=== PATIENT | female | born 1955 | race Caucasian/White ===

== ENCOUNTER 2017-03-04 11:40 | Inpatient (IN) | payer BC ==
[~2017-03-04] VITALS: Ht 152.4 cm; Wt 48.8 kg
[~2017-03-04 11:40] MED LIST: Z.0.NO CURRENT MEDS
[2017-03-04 11:42] VITALS: BP 133/62; PULSE 118; RESP 20; TEMP 99.1; O2SAT 97
[2017-03-04] MEDS ORDERED: SODIUM CHLOR 0.9% 1000 ML INJ 1,000 ML IV SCH (13:15)
--- NOTE | 2017-03-04 13:25 | PD ---
HPI Chief Complaint: Skin Problem Time Seen by Provider: 13:06 Travel History International Travel<30 days: No Contact w/Intl Traveler<30days: No Traveled to known affect area: No History of Present Illness HPI This is a 61-year-old female who presents to the emergency department with pain in her right breast. 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 She's not had any problems since then. This morning she woke up with pain in her right breast, constant, moderate severity, with a lot of tenderness in her breast and a temperature of 101. Dr. Bryan was her surgeon at the time of her reconstruction. PFSH Past Medical History Hx Anticoagulant Therapy: No Cardiovascular Problems: No Chemotherapy: No Cerebrovascular Accident: No Diabetes: No Diminished Hearing: No Respiratory: No Tetanus Vaccination: > 5 Years ?: Unknown Menopausal: Yes Past Surgical History Hysterectomy: Yes Social History Alcohol Use: Yes (1-2 WEEK) Tobacco Use: Yes (1 PK DAY) Substance Use: No Allergies-Medications (Allergen,Severity, Reaction): Coded Allergies: No Known Allergies (Verified , 06/16/08) Reported Meds & Prescriptions Reported Meds & Active Scripts Active Reported No Current Meds (Miscellaneous Medication) Misc Review of Systems Except as stated in HPI: all other systems reviewed are Neg Physical Exam Narrative GENERAL:Well appearing, no acute distress SKIN: Erythema and warmth of the right breast, diffusely tender HEAD: Atraumatic. Normocephalic. EYES: Pupils equal and round. No injection or drainage. ENT: Moist mucous membranes NECK: Trachea midline. CARDIOVASCULAR: Regular rate and rhythm. No murmur appreciated. RESPIRATORY: Clear to auscultation. Breath sounds equal bilaterally. GASTROINTESTINAL: Abdomen soft, non-tender, nondistended. MUSCULOSKELETAL: No obvious deformities. NEUROLOGICAL: Awake and alert. No obvious cranial nerve deficits. Moving all extremities. PSYCHIATRIC: Appropriate mood and affect; insight and judgment normal. Data Data Last Documented VS Vital Signs Date Time Temp Pulse Resp B/P (MAP) Pulse Ox O2 Delivery O2 Flow Rate FiO2 03/04/17 14:42 99.1 80 18 118/74 (89) 99 03/04/17 11:42 Room Air Orders Orders Complete Blood Count With Diff (03/04/17 13:12) Comprehensive Metabolic Panel (03/04/17 13:12) Lactic Acid Sepsis Protocol (03/04/17 13:12) Blood Culture (03/04/17 13:12) Blood Glucose (03/04/17 13:12) Ecg Monitoring (03/04/17 13:12) Iv Access Insert/Monitor (03/04/17 13:12) Oximetry (03/04/17 13:12) Oxygen Administration (03/04/17 13:12) Sodium Chlor 0.9% 1000 Ml Inj (Ns 1000 M (03/04/17 13:15) Us Breast Unilateral (03/04/17 ) Clindamycin Inj (Cleocin Inj) (03/04/17 14:00) Admit Order (Ed Use Only) (03/04/17 14:42) Labs Laboratory Tests Test 03/04/17 13:30 White Blood Count 16.5 TH/MM3 Red Blood Count 4.41 MIL/MM3 Hemoglobin 13.4 GM/DL Hematocrit 40.4 % Mean Corpuscular Volume 91.6 FL Mean Corpuscular Hemoglobin 30.5 PG Mean Corpuscular Hemoglobin Concent 33.3 % Red Cell Distribution Width 13.7 % Platelet Count 284 TH/MM3 Mean Platelet Volume 6.3 FL Neutrophils (%) (Auto) 74.1 % Lymphocytes (%) (Auto) 18.0 % Monocytes (%) (Auto) 7.2 % Eosinophils (%) (Auto) 0.5 % Basophils (%) (Auto) 0.2 % Neutrophils # (Auto) 12.3 TH/MM3 Lymphocytes # (Auto) 3.0 TH/MM3 Monocytes # (Auto) 1.2 TH/MM3 Eosinophils # (Auto) 0.1 TH/MM3 Basophils # (Auto) 0.0 TH/MM3 CBC Comment DIFF FINAL Differential Comment Blood Urea Nitrogen 16 MG/DL Creatinine 0.83 MG/DL Random Glucose 95 MG/DL Total Protein 7.0 GM/DL Albumin 3.4 GM/DL Calcium Level 8.7 MG/DL Alkaline Phosphatase 58 U/L Aspartate Amino Transf (AST/SGOT) 10 U/L Alanine Aminotransferase (ALT/SGPT) 15 U/L Total Bilirubin 0.5 MG/DL Sodium Level 140 MEQ/L Potassium Level 3.3 MEQ/L Chloride Level 105 MEQ/L Carbon Dioxide Level 25.0 MEQ/L Anion Gap 10 MEQ/L Estimat Glomerular Filtration Rate 70 ML/MIN Lactic Acid Level 0.5 mmol/L MDM Medical Decision Making Medical Screen Exam Complete: Yes Emergency Medical Condition: Yes Interpretation(s) Temperature is 99.1, tachycardic, normotensive She leukocytosis 74% neutrophils Hypokalemia Lactic acid is 0.5 Last 24 hours Impressions Breast Ultrasound 03/04/17 0000 Signed Impressions: Service Date/Time: Saturday, March 04, 2017 13:33 - CONCLUSION: No ultrasound evidence of skin thickening or subcutaneous fluid collection. Anitra Daniels MD Differential Diagnosis Breast abscess, breast cellulitis, infected implant, sepsis Narrative Course This is a 61-year-old female who presents to the emergency department with swelling and pain of her right breast. She had an implant placed in 2014 but hasn't had trouble since. She did temperature of 101 at home. Here in the emergency department she is placed in a monitor and an IV was established. Labs demonstrate a leukocytosis of 16 and she was tachycardic on arrival consistent with sepsis. She was given a dose of IV clindamycin and cultures were obtained. I spoke to who agreed to see the patient tomorrow or on Monday if she were admitted to the hospital. I think she needs IV antibiotics. She'll be admitted to the resident service. Physician Communication Physician Communication Discussed with Dr. Bryan and on-call residents Diagnosis Primary Impression: Sepsis Qualified Codes: A41.9 - Sepsis, unspecified organism Additional Impression: Cellulitis of breast Admitting Information Admitting Physician Requests: Admit Shaylee Mcgrath MD Mar 04, 2017 13:25
[2017-03-04 13:45] VITALS: O2SAT 98
[2017-03-04 13:58] LABS: AUTOMATED NEUTROPHIL # 12.3 TH/MM3 (1.8-7.7); BASOPHIL % 0.2 % (0.0-2.0); EOSINOPHIL # 0.1 TH/MM3 (0-0.4); EOSINOPHIL % 0.5 % (0.0-4.0); HEMATOCRIT 40.4 % (35.0-46.0); HEMO FLAGS DIFF FINAL; MEAN CELL VOLUME 91.6 FL (80.0-100.0); MEAN CORPUSCULAR HEMOGLOBIN 30.5 PG (27.0-34.0); MEAN CORPUSCULAR HGB CONC 33.3 % (32.0-36.0); MONO % 7.2 % (0.0-8.0); NEUT % 74.1 % (16.0-70.0); PLATELET COUNT 284 TH/MM3 (150-450); RED BLOOD COUNT 4.41 MIL/MM3 (4.00-5.30); RED CELL DISTRIBUTION WIDTH 13.7 % (11.6-17.2); WHITE BLOOD COUNT 16.5 TH/MM3 (4.0-11.0)
[2017-03-04] MEDS ORDERED: CLINDAMYCIN INJ 600 MG in SODIUM CHLORIDE 0.9% INJ 100 ML IV ONE (14:00)
--- NOTE | 2017-03-04 14:04 | RADRPT ---
EXAM DATE/TIME: 03/04/2017 13:33 [facility] COMPARISON: No previous studies available for comparison. INDICATIONS : Right breast redness and tenderness. MEDICAL HISTORY : Tobacco use. Fever. SURGICAL HISTORY : Hysterectomy. Mastectomy, bilateral. Breast implant. ENCOUNTER: Initial ACUITY: 2 days PAIN SCORE: 9/10 LOCATION: Right breast. FINDINGS: Imaging is performed per milliliter by the reliability technologist. Imaging of the reconstructed righ t breast is performed in the retroareolar, 7: 00 through 9:00 1 cm from the nipple. There is an intact implant identified. The skin appears normal in thickness. No evidence of abnormal fluid collection. No abnormal vascularity. CONCLUSION: No ultrasound evidence of skin thickening or subcutaneous fluid collection. Anitra Daniels MD on March 04, 2017 at 14:01 Board Certified Radiologist. This report was verified electronically.
[2017-03-04 14:30] LABS: ANION GAP 10 MEQ/L (5-15); AST (GOT) 10 U/L (15-37); BLOOD UREA NITROGEN 16 MG/DL (7-18); CHLORIDE 105 MEQ/L (98-107); GLOMERULAR FILTRATION RATE 70 ML/MIN (>89); POTASSIUM 3.3 MEQ/L (3.5-5.1); SODIUM (NA) 140 MEQ/L (136-145)
[2017-03-04 14:33] LABS: ALKALINE PHOSPHATASE 58 U/L (45-117); ALT (GPT) 15 U/L (10-53); TOTAL BILIRUBIN ADULT 0.5 MG/DL (0.2-1.0)
[2017-03-04 14:42] VITALS: BP 118/74; PULSE 80; RESP 18; TEMP 99.1; O2SAT 99
[2017-03-04] MEDS ORDERED: SODIUM CHLORIDE 0.9% FLUSH 10 ML FLUSH IV FLUSH PRN ×2 (15:00→16:00)
--- NOTE | 2017-03-04 15:00 | HHI.HP ---
[facility] Service Family Medicine Primary Care Physician Jackson Pyle, DO Admission Diagnosis sepsis, cellulitis right breast Diagnoses: International Travel<30 Days: No Contact w/Intl Traveler<30days: No Known Affected Area: No History of Present Illness 61-year-old female, history of breast cancer with a bilateral mastectomy in 2014 , presenting with right breast pain and erythema since 7:30 PM last night. Patient did not notice any abnormal pain or redness on her breast this week until last night at 7:30 PM when she noticed a sharp pain in her right breast. The pain got worse overnight getting worse every hour until 7:30 AM this morning when the pain was at its maximum. She also noted the right breast is getting more swollen Patient also notices 7:30 this morning that her head hurt, she felt feverish, and she was very thirsty. She took her temperature sublingually with her home thermometer and it was 101. She came to the ER right away. On review of systems, the patient notes that she was more fatigued than usual this week and she also felt on multiple occasions that she had blurry vision. Sure if this is related. She did have a colonoscopy on Monday and does not recall any complications of the procedure. (Radha Porter MD R2) Review of Systems Constitutional: DENIES: Weight gain, Weight loss Endocrine: DENIES: Heat/cold intolerance, Polyuria Eyes: DENIES: Eye inflammation, Eye pain Ears, nose, mouth, throat: DENIES: Hearing loss, Vertigo Respiratory: DENIES: Apneas, Cough Cardiovascular: DENIES: Palpitations, Syncope Gastrointestinal: DENIES: Constipation, Diarrhea Genitourinary: DENIES: Urinary frequency, Urinary incontinence Musculoskeletal: DENIES: Muscle aches, Stiffness Integumentary: DENIES: Rash Hematologic/lymphatic: DENIES: Lymphadenopathy Immunologic/allergic: DENIES: Eczema Neurologic: DENIES: Localized weakness Psychiatric: DENIES: Confusion, Mood changes (Radha Porter MD R2) Past Family Social History Past Medical History breast cancer: - diagnosed april 2015 - bilateral mastectomy june 2015 - s/p double mastectomy with reconstructive surgery with "allergen gel" in june 2015 @ [facility] - - annual check ups, last checkup WNL in june 2016 - Ductal carcinoma in situ (DCIS) - picked up on regular screening mammogram Bowel obstruction in October 2016 -Patient was hospitalized for one week -Required a laparoscopy for lysis of adhesions -Per patient; patient had an allergic reaction to succinylcholine in anesthesia and required to be placed in ICU and placed on a ventilator -Patient states she also had an obstruction one month ago and it was relieved using medical management and outpatient Past Surgical History Bilateral mastectomy in June 2015 Laboratory data os could be for lysis of adhesions in October 2016 Total abdominal hysterectomy 2000 (Radha Porter MD R2) Allergies: Coded Allergies: No Known Allergies (Verified , 06/16/08) Family History Mom, aunts with breast cancer Moms: Colon cancer at age 78 Father: Prostate cancer and kidney cancer and hypertension Social History smoke 3-5cigarettes/day 40 yrs, no alcohol, no other drugs social: 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 SKIN: No rashes, ecchymoses or lesions. Cool and dry. - breast: area of cellulitis on R breast ; cover 2/3 of breast. no areas of pustular drainage. moderately tender over all area of R breast. Mild swelling noted in comparison to left. No nodes palpable HEAD: Atraumatic. Normocephalic. No temporal or scalp tenderness. EYES: Pupils equal round and reactive. Extraocular motions intact. No scleral icterus. No injection or drainage. ENT: Nose without bleeding, purulent drainage or septal hematoma. Throat without erythema, tonsillar hypertrophy or exudate. Uvula midline. Airway patent. NECK: Trachea midline. No JVD or lymphadenopathy. Supple, nontender, no meningeal signs. CARDIOVASCULAR: Regular rate and rhythm without murmurs, gallops, or rubs. RESPIRATORY: Clear to auscultation. Breath sounds equal bilaterally. No wheezes , rales, or rhonchi. GASTROINTESTINAL: Abdomen soft, non-tender, nondistended. No hepato-splenomegaly , or palpable masses. No guarding. MUSCULOSKELETAL: Extremities without clubbing, cyanosis, or edema. No joint tenderness, effusion, or edema noted. No calf tenderness. Negative Homans sign bilaterally. NEUROLOGICAL: Awake and alert. Cranial nerves II through XII intact. Motor and sensory grossly within normal limits. Five out of 5 muscle strength in all muscle groups. Normal speech. Laboratory Laboratory Tests Test 03/04/17 13:30 White Blood Count 16.5 Red Blood Count 4.41 Hemoglobin 13.4 Hematocrit 40.4 Mean Corpuscular Volume 91.6 Mean Corpuscular Hemoglobin 30.5 Mean Corpuscular Hemoglobin Concent 33.3 Red Cell Distribution Width 13.7 Platelet Count 284 Mean Platelet Volume 6.3 Neutrophils (%) (Auto) 74.1 Lymphocytes (%) (Auto) 18.0 Monocytes (%) (Auto) 7.2 Eosinophils (%) (Auto) 0.5 Basophils (%) (Auto) 0.2 Neutrophils # (Auto) 12.3 Lymphocytes # (Auto) 3.0 Monocytes # (Auto) 1.2 Eosinophils # (Auto) 0.1 Basophils # (Auto) 0.0 CBC Comment DIFF FINAL Differential Comment Blood Urea Nitrogen 16 Creatinine 0.83 Random Glucose 95 Total Protein 7.0 Albumin 3.4 Calcium Level 8.7 Alkaline Phosphatase 58 Aspartate Amino Transf (AST/SGOT) 10 Alanine Aminotransferase (ALT/SGPT) 15 Total Bilirubin 0.5 Sodium Level 140 Potassium Level 3.3 Chloride Level 105 Carbon Dioxide Level 25.0 Anion Gap 10 Estimat Glomerular Filtration Rate 70 Lactic Acid Level 0.5 Date/Time Source Procedure Growth Status 03/04/17 13:30 Blood Peripheral Aerobic Blood Culture Pending Received 03/04/17 13:30 Blood Peripheral Anaerobic Blood Culture Pending Received (Radha Porter MD R2) Result Diagram: 03/04/17 1330 03/04/17 1330 Caprini VTE Risk Assessment Caprini VTE Risk Assessment: No/Low Risk (score <= 1) Caprini Risk Assessment Model Point Value = 1 Point Value = 2 Point Value = 3 Point Value = 5 Age 41-60 Minor surgery BMI > 25 kg/m2 Swollen legs Varicose veins or History of unexplained or recurrent spontaneous Oral contraceptives or hormone replacement Sepsis (< 1 month) Serious lung disease, including pneumonia (< 1 month) Abnormal pulmonary function Acute myocardial infarction Congestive heart failure (< 1 month) History of inflammatory bowel disease Medical patient at bed rest Age 61-74 Arthroscopic surgery Major open surgery (> 45 min) Laparoscopic surgery (> 45 min) Malignancy Confined to bed (> 72 hours) Immobilizing plaster cast Central venous access Age >= 75 History of VTE Family history of VTE Factor V Leiden Prothrombin [id number] Lupus anticoagulant Anticardiolipin antibodies Elevated serum homocysteine Heparin-induced thrombocytopenia Other congenital or acquired thrombophilia Stroke (< 1 month) Elective arthroplasty Hip, pelvis, or leg fracture Acute spinal cord injury (< 1 month) Prophylaxis Regimen Total Risk Factor Score Risk Level Prophylaxis Regimen 0-1 Low Early ambulation 2 Moderate Order ONE of the following: *Sequential Compression Device (SCD) *Heparin 5000 units SQ BID 3-4 Higher Order ONE of the following medications: *Heparin 5000 units SQ TID *Enoxaparin/Lovenox 40 mg SQ daily (WT < 150 kg, CrCl > 30 mL/min) *Enoxaparin/Lovenox 30 mg SQ daily (WT < 150 kg, CrCl > 10-29 mL/min) *Enoxaparin/Lovenox 30 mg SQ BID (WT < 150 kg, CrCl > 30 mL/min) AND/OR *Sequential Compression Device (SCD) 5 or more Highest Order ONE of the following medications: *Heparin 5000 units SQ TID (Preferred with Epidurals) *Enoxaparin/Lovenox 40 mg SQ daily (WT < 150 kg, CrCl > 30 mL/min) *Enoxaparin/Lovenox 30 mg SQ daily (WT < 150 kg, CrCl > 10-29 mL/min) *Enoxaparin/Lovenox 30 mg SQ BID (WT < 150 kg, CrCl > 30 mL/min) AND *Sequential Compression Device (SCD) (Radha Porter MD R2) Assessment and Plan Assessment and Plan 61-year-old female, history of bilateral mastectomy in 2014, presenting with right breast cellulitis. Code Status Full code Discussed Condition With , (Radha Porter MD R2) Attending Attestation Patient seen and examined. Case reviewed and discussed with the resident team. Agree with plan of care as discussed with me and documented in the resident note. pt seen in ED on admission. definite well demarcated area of erythema right breast. with family history of mother and aunts having breast cancer can investigate for possible genetic cancer problems like BRCA. (Aranza Solares MD) Problem List: (1) Cellulitis of breast ICD Codes: N61.0 - Mastitis without abscess Status: Acute Plan: Rapidly progressive erythema over right breast implant. - Ultrasound of breast: No ultrasound evidence of skin thickening or subcutaneous fluid collection - Primary surgeon Dr. Bryan has been consulted; agrees with plan. Will be notified if patient is still in-house tomorrow night - IV vancomycin 1 g at 250 ML's per hour; 1 mg twice a day ordered, pharmacy consulted for dressing - Status post clindamycin 600 mg IV once and ED - IV fluids at maintenance - Line has been drawn surrounding rash of cellulitis, follow-up progression or regression (2) Sepsis ICD Codes: A41.9 - Sepsis, unspecified organism Status: Acute Plan: Leukocytosis of 16, tachycardia, temp of 101 at home - EKG within normal limits - Lactic acid 0.5 - Blood cultures drawn - Status post IV clindamycin and ED - DC clindamycin and start IV Vancomycin - VS q4 - f/u CBC in AM (3) FEN/ PPX Status: Acute Plan: Fluids: Normal saline Electrolytes: Follow-up BMP Nutrition: Regular diet DVT prophylaxis: Heparin 5000 3 times a day, SCDs and teds (Radha Porter MD R2) Physician Certification 2 Midnight Certification Type: Admission for Inpatient Services Order for Inpatient Services The services are ordered in accordance with Medicare regulations or non- Medicare payer requirements, as applicable. In the case of services not specified as inpatient-only, they are appropriately provided as inpatient services in accordance with the 2-midnight benchmark. Estimated LOS (days): 2 days is the estimated time the patient will need to remain in the hospital, assuming treatment plan goals are met and no additional complications. Post-Hospital Plan: Home (Radha Porter MD R2) Problem Qualifiers (1) Sepsis: Qualified Codes: A41.9 - Sepsis, unspecified organism Radha Porter MD R2 Mar 04, 2017 15:00 Aranza Solares MD Mar 05, 2017 14:11
[2017-03-04] MEDS ORDERED: ACETAMINOPHEN 500 MG CPLT PO PRN (16:00)
[2017-03-04] MEDS ORDERED: Vancomycin Consult Pharmacy 1 EA OTHER SCH (16:00)
[2017-03-04] MEDS: SODIUM CHLOR 0.9% 1000 ML INJ 1,000 ML IV SCH (17:24)
[2017-03-04] MEDS: HEPARIN SODIUM - SQ 10,000 UNITS/ML VIAL SQ SCH (17:25)
[2017-03-04] MEDS ORDERED: VANCOMYCIN INJ 1,000 MG in SODIUM CHLOR 0.9% 250 ML INJ 250 ML IV ONE (18:00)
[2017-03-04 18:21] VITALS: BP 124/64; PULSE 84; RESP 20; TEMP 99.3
[2017-03-04] MEDS ORDERED: SODIUM CHLORIDE 0.9% FLUSH 10 ML FLUSH IV FLUSH SCH (21:00)
[2017-03-04] MEDS: SODIUM CHLORIDE 0.9% FLUSH 10 ML FLUSH IV FLUSH SCH (21:58)
[2017-03-04 22:03] VITALS: BP 134/67; PULSE 84; RESP 16; TEMP 100.5; O2SAT 97
[2017-03-04 22:30] VITALS: O2SAT 98
[2017-03-05] VITALS (7 sets, daily range): BP systolic 102–138; BP diastolic 56–69; PULSE 74–83; RESP 15–20; TEMP 98.2–99.5; O2SAT 93–96
[2017-03-05] MEDS: HEPARIN SODIUM - SQ 10,000 UNITS/ML VIAL SQ SCH ×3 (02:02→16:57)
[2017-03-05] MEDS: SODIUM CHLOR 0.9% 1000 ML INJ 1,000 ML IV SCH ×3 (02:22→22:15)
[2017-03-05] MEDS ORDERED: POTASSIUM CHLORIDE 10 MEQ CONTROLLED RELEASE TAB PO ONE (06:00)
[2017-03-05] MEDS: SODIUM CHLORIDE 0.9% FLUSH 10 ML FLUSH IV FLUSH SCH ×2 (08:39→21:00)
[2017-03-05 09:15] LABS: AUTOMATED NEUTROPHIL # 9.6 TH/MM3 (1.8-7.7); BASOPHIL % 0.2 % (0.0-2.0); EOSINOPHIL % 0.3 % (0.0-4.0); HEMO FLAGS DIFF FINAL; LYMPH % 21.1 % (9.0-44.0); LYMPHOCYTE # 2.8 TH/MM3 (1.0-4.8); MEAN CELL VOLUME 92.6 FL (80.0-100.0); MEAN CORPUSCULAR HEMOGLOBIN 31.1 PG (27.0-34.0); MEAN CORPUSCULAR HGB CONC 33.6 % (32.0-36.0); MONO % 6.4 % (0.0-8.0); PLATELET COUNT 237 TH/MM3 (150-450); RED BLOOD COUNT 3.88 MIL/MM3 (4.00-5.30); RED CELL DISTRIBUTION WIDTH 13.7 % (11.6-17.2); WHITE BLOOD COUNT 13.4 TH/MM3 (4.0-11.0)
[2017-03-05 10:00] LABS: BICARBONATE 21.8 MEQ/L (21.0-32.0); POTASSIUM 3.9 MEQ/L (3.5-5.1)
--- NOTE | 2017-03-05 10:10 | HHI.HP ---
[facility] Family Medicine Primary Care Physician Jackson Pyle, DO Admission Diagnosis sepsis, cellulitis right breast Diagnoses: (1) Cellulitis of breast Diagnosis: Principal (2) Sepsis Diagnosis: Principal (3) FEN/ PPX Diagnosis: Principal International Travel<30 Days: No Contact w/Intl Traveler<30days: No Known Affected Area: No History of Present Illness Ms Sauceda is a 61-year-old female, with a history of breast cancer s/p bilateral mastectomy in 2014, presenting with right breast pain and erythema since 7:30 PM the night before admission. Patient did not notice any abnormal pain or redness on her breast this week until last night at 7:30 PM when she noticed a sharp pain in her right breast. The pain got worse overnight getting worse every hour until 7:30 AM the morning of admission when the pain was at its maximum. She also noted the right breast was getting more swollen Patient also notices 7:30 this morning that her head hurt, she felt feverish, and she was very thirsty. She took her temperature sublingually with her home thermometer and it was 101. She came to the ER right away. On review of systems, the patient notes that she was more fatigued than usual this week and she also felt on multiple occasions that she had blurry vision. Unsure if this is related. She did have a colonoscopy on Monday and does not recall any complications of the procedure. Overnight, she has remained stable. Her infection is not worsening but not markedly improved either. Review of Systems Other Constitutional: DENIES: Weight gain, Weight loss Endocrine: DENIES: Heat/cold intolerance, Polyuria Eyes: DENIES: Eye inflammation, Eye pain Ears, nose, mouth, throat: DENIES: Hearing loss, Vertigo Respiratory: DENIES: Apneas, Cough Cardiovascular: DENIES: Palpitations, Syncope Gastrointestinal: DENIES: Constipation, Diarrhea Genitourinary: DENIES: Urinary frequency, Urinary incontinence Musculoskeletal: DENIES: Muscle aches, Stiffness Integumentary: DENIES: Rash Hematologic/lymphatic: DENIES: Lymphadenopathy Immunologic/allergic: DENIES: Eczema Neurologic: DENIES: Localized weakness Psychiatric: DENIES: Confusion, Mood changes Past Family Social History Past Medical History breast cancer: - diagnosed april 2015 - bilateral mastectomy june 2015 - s/p double mastectomy with reconstructive surgery with "allergen gel" in june 2015 @ [facility] - - annual check ups, last checkup WNL in june 2016 - Ductal carcinoma in situ (DCIS) - picked up on regular screening mammogram Bowel obstruction in October 2016 -Patient was hospitalized for one week -Required a laparoscopy for lysis of adhesions -Per patient; patient had an allergic reaction to succinylcholine in anesthesia and required to be placed in ICU and placed on a ventilator -Patient states she also had an obstruction one month ago and it was relieved using medical management and outpatient Past Surgical History Bilateral mastectomy in June 2015 Laboratory data os could be for lysis of adhesions in October 2016 Total abdominal hysterectomy 2000 Allergies: Coded Allergies: No Known Allergies (Verified , 06/16/08) Family History Mom, aunts with breast cancer Moms: Colon cancer at age 78 Father: Prostate cancer and kidney cancer and hypertension Social History smoke 3-5cigarettes/day 40 yrs, no alcohol, no other drugs social: lives w son, works at Dermatology office Physical Exam Vital Signs Vital Signs Date Time Temp Pulse Resp B/P (MAP) Pulse Ox O2 Delivery O2 Flow Rate FiO2 03/05/17 07:34 98.9 78 18 138/62 (87) 94 03/05/17 07:08 93 21 03/05/17 03:23 99.5 83 16 117/56 (76) 94 03/04/17 22:30 98 21 03/04/17 22:03 100.5 84 16 134/67 (89) 97 03/04/17 18:21 99.3 84 20 124/64 (84) 03/04/17 14:42 99.1 80 18 118/74 (89) 99 03/04/17 13:45 98 03/04/17 13:44 99 03/04/17 11:42 99.1 118 20 133/62 (85) 97 Room Air Physical Exam GENERAL: This is a well-nourished, well-developed patient, in no apparent distress. SKIN: No rashes, ecchymoses or lesions. Cool and dry. - breast: area of cellulitis on R breast ; covers 2/3 of breast. no areas of pustular drainage. moderately tender over all area of R breast. Mild swelling noted in comparison to left. No nodes palpable. line of demarkation of erythema HEAD: Atraumatic. Normocephalic. No temporal or scalp tenderness. EYES: Pupils equal round and reactive. Extraocular motions intact. No scleral icterus. No injection or drainage. ENT: Nose without bleeding, purulent drainage or septal hematoma. Throat without erythema, tonsillar hypertrophy or exudate. Uvula midline. Airway patent. NECK: Trachea midline. No JVD or lymphadenopathy. Supple, nontender, no meningeal signs. CARDIOVASCULAR: Regular rate and rhythm without murmurs, gallops, or rubs. RESPIRATORY: Clear to auscultation. Breath sounds equal bilaterally. No wheezes , rales, or rhonchi. GASTROINTESTINAL: Abdomen soft, non-tender, nondistended. No hepato-splenomegaly , or palpable masses. No guarding. MUSCULOSKELETAL: Extremities without clubbing, cyanosis, or edema. No joint tenderness, effusion, or edema noted. No calf tenderness. Negative Homans sign bilaterally. NEUROLOGICAL: Awake and alert. Cranial nerves II through XII intact. Motor and sensory grossly within normal limits. Five out of 5 muscle strength in all muscle groups. Normal speech. Laboratory Laboratory Tests Test 03/04/17 13:30 03/05/17 08:17 White Blood Count 16.5 13.4 Red Blood Count 4.41 3.88 Hemoglobin 13.4 12.1 Hematocrit 40.4 36.0 Mean Corpuscular Volume 91.6 92.6 Mean Corpuscular Hemoglobin 30.5 31.1 Mean Corpuscular Hemoglobin Concent 33.3 33.6 Red Cell Distribution Width 13.7 13.7 Platelet Count 284 237 Mean Platelet Volume 6.3 7.0 Neutrophils (%) (Auto) 74.1 72.0 Lymphocytes (%) (Auto) 18.0 21.1 Monocytes (%) (Auto) 7.2 6.4 Eosinophils (%) (Auto) 0.5 0.3 Basophils (%) (Auto) 0.2 0.2 Neutrophils # (Auto) 12.3 9.6 Lymphocytes # (Auto) 3.0 2.8 Monocytes # (Auto) 1.2 0.9 Eosinophils # (Auto) 0.1 0.0 Basophils # (Auto) 0.0 0.0 CBC Comment DIFF FINAL DIFF FINAL Differential Comment Blood Urea Nitrogen 16 8 Creatinine 0.83 0.61 Random Glucose 95 117 Total Protein 7.0 Albumin 3.4 Calcium Level 8.7 Alkaline Phosphatase 58 Aspartate Amino Transf (AST/SGOT) 10 Alanine Aminotransferase (ALT/SGPT) 15 Total Bilirubin 0.5 Sodium Level 140 139 Potassium Level 3.3 3.9 Chloride Level 105 110 Carbon Dioxide Level 25.0 21.8 Anion Gap 10 7 Estimat Glomerular Filtration Rate 70 100 Lactic Acid Level 0.5 Date/Time Source Procedure Growth Status 03/04/17 13:30 Blood Peripheral Aerobic Blood Culture Pending Received 03/04/17 13:30 Blood Peripheral Anaerobic Blood Culture Pending Received Result Diagram: 03/05/1781603/05/17816 Caprini VTE Risk Assessment Caprini VTE Risk Assessment: No/Low Risk (score <= 1) Caprini Risk Assessment Model Point Value = 1 Point Value = 2 Point Value = 3 Point Value = 5 Age 41-60 Minor surgery BMI > 25 kg/m2 Swollen legs Varicose veins or History of unexplained or recurrent spontaneous Oral contraceptives or hormone replacement Sepsis (< 1 month) Serious lung disease, including pneumonia (< 1 month) Abnormal pulmonary function Acute myocardial infarction Congestive heart failure (< 1 month) History of inflammatory bowel disease Medical patient at bed rest Age 61-74 Arthroscopic surgery Major open surgery (> 45 min) Laparoscopic surgery (> 45 min) Malignancy Confined to bed (> 72 hours) Immobilizing plaster cast Central venous access Age >= 75 History of VTE Family history of VTE Factor V Leiden Prothrombin [id number] Lupus anticoagulant Anticardiolipin antibodies Elevated serum homocysteine Heparin-induced thrombocytopenia Other congenital or acquired thrombophilia Stroke (< 1 month) Elective arthroplasty Hip, pelvis, or leg fracture Acute spinal cord injury (< 1 month) Prophylaxis Regimen Total Risk Factor Score Risk Level Prophylaxis Regimen 0-1 Low Early ambulation 2 Moderate Order ONE of the following: *Sequential Compression Device (SCD) *Heparin 5000 units SQ BID 3-4 Higher Order ONE of the following medications: *Heparin 5000 units SQ TID *Enoxaparin/Lovenox 40 mg SQ daily (WT < 150 kg, CrCl > 30 mL/min) *Enoxaparin/Lovenox 30 mg SQ daily (WT < 150 kg, CrCl > 10-29 mL/min) *Enoxaparin/Lovenox 30 mg SQ BID (WT < 150 kg, CrCl > 30 mL/min) AND/OR *Sequential Compression Device (SCD) 5 or more Highest Order ONE of the following medications: *Heparin 5000 units SQ TID (Preferred with Epidurals) *Enoxaparin/Lovenox 40 mg SQ daily (WT < 150 kg, CrCl > 30 mL/min) *Enoxaparin/Lovenox 30 mg SQ daily (WT < 150 kg, CrCl > 10-29 mL/min) *Enoxaparin/Lovenox 30 mg SQ BID (WT < 150 kg, CrCl > 30 mL/min) AND *Sequential Compression Device (SCD) Assessment and Plan Assessment and Plan 61-year-old female, history of bilateral mastectomy in 2014, presenting with right breast cellulitis. Problem List: (1) Cellulitis of breast ICD Codes: N61.0 - Mastitis without abscess Status: Acute Plan: Rapidly progressive erythema over right breast implant. - Ultrasound of breast: No ultrasound evidence of skin thickening or subcutaneous fluid collection - Primary surgeon Dr. Bryan has been consulted; agrees with plan. can be notified if patient is still in-house tomorrow night - IV vancomycin 1 g at 250 ML's per hour; 1 mg twice a day ordered, pharmacy consulted for dressing - Status post clindamycin 600 mg IV once and ED - IV fluids at maintenance - Line has been drawn surrounding rash of cellulitis, follow-up progression or regression. stable today (2) Sepsis ICD Codes: A41.9 - Sepsis, unspecified organism Status: Acute Plan: Leukocytosis of 16, tachycardia, temp of 101 at home - EKG within normal limits - Lactic acid 0.5 - Blood cultures drawn - Status post IV clindamycin and ED - DC clindamycin and start IV Vancomycin - VS q4 - f/u CBC in AM (3) FEN/ PPX Status: Acute Plan: Fluids: Normal saline Electrolytes: Follow-up BMP Nutrition: Regular diet DVT prophylaxis: Heparin 5000 3 times a day, SCDs and teds Physician Certification 2 Midnight Certification Type: Admission for Inpatient Services Order for Inpatient Services The services are ordered in accordance with Medicare regulations or non- Medicare payer requirements, as applicable. In the case of services not specified as inpatient-only, they are appropriately provided as inpatient services in accordance with the 2-midnight benchmark. Estimated LOS (days): 3 3 days is the estimated time the patient will need to remain in the hospital, assuming treatment plan goals are met and no additional complications. Post-Hospital Plan: Home Problem Qualifiers (1) Sepsis: Qualified Codes: A41.9 - Sepsis, unspecified organism Aranza Solares MD Mar 05, 2017 10:10
[2017-03-05] MEDS: VANCOMYCIN INJ 750 MG in SODIUM CHLOR 0.9% 250 ML INJ 250 ML IV SCH (13:38)
[2017-03-06] VITALS: BP 114/56; PULSE 16; PULSE 70; RESP 16; TEMP 97.5; O2SAT 94
[2017-03-06] MEDS: HEPARIN SODIUM - SQ 10,000 UNITS/ML VIAL SQ SCH ×2 (00:39→09:00)
[2017-03-06] MEDS: SODIUM CHLOR 0.9% 1000 ML INJ 1,000 ML IV SCH (01:06)
[2017-03-06 04:00] VITALS: BP 113/55; PULSE 60; RESP 16; TEMP 97.7; O2SAT 94
[2017-03-06] MEDS: VANCOMYCIN INJ 750 MG in SODIUM CHLOR 0.9% 250 ML INJ 250 ML IV SCH (05:38)
[2017-03-06 08:00] VITALS: BP 116/56; PULSE 59; RESP 16; TEMP 97.9; O2SAT 96
[2017-03-06] MEDS: SODIUM CHLORIDE 0.9% FLUSH 10 ML FLUSH IV FLUSH SCH (09:58)
--- NOTE | 2017-03-06 10:09 | HHI.FPPN ---
Subjective Remarks Patient seen and examined this morning by medical team. No acute events overnight per nursing staff. Patient mildly hypotensive overnight to 113/55, but remains asymptomatic. She currently has no complaints and desires to be discharged today. She states that she will be compliant with her outpatient medications and follow up with both her PCP and Dr. Amato regarding her implant. She denies any recent fevers, chills, shortness of breath, chest pain, NVD, abdominal pain, or calf tenderness. (Adarsh Church MD R2) Objective Vitals Vital Signs Date Time Temp Pulse Resp B/P (MAP) Pulse Ox O2 Delivery O2 Flow Rate FiO2 03/06/17 04:00 97.7 60 16 113/55 (74) 94 03/06/17 00:00 97.5 16 16 114/56 (75) 94 03/05/17 20:00 99.0 83 15 106/60 (75) 93 03/05/17 17:37 94 03/05/17 15:30 98.2 77 20 102/69 (80) 95 03/05/17 10:45 98.2 74 20 113/61 (78) 96 I/O 03/05/17 03/05/17 03/05/17 03/06/17 03/06/17 03/06/17 06:59 14:59 22:59 06:59 14:59 22:59 Intake Total 800 ml 210 ml 720 ml Balance 800 ml 210 ml 720 ml Intake Oral 210 ml 720 ml IV Total 800 ml # Voids 1 5 2 2 # Bowel Movements 1 (Adarsh Church MD R2) Result Diagram: 03/05/1781603/05/17816 Objective Remarks GENERAL: Well-nourished, well-developed patient female lying in bed in no acute distress. SKIN: Warm and dry. No rash. Right breast: Area of erythema outlined on the right breast, improved greatly from time of admission. Patient with decreased tenderness to palpation over all areas of the right breast. Continued mild swelling and warmth in comparison to her left breast. No palpable axillary, sternal, or clavicular lymph nodes. HEENT: Atraumatic, normocephalic with EOMI. MMM. No rhinorrhea. No visible JVD or LAD appreciated. CARDIOVASCULAR: Regular rate and rhythm without obvious murmurs, gallops, or rubs. RESPIRATORY: Breath sounds equal bilaterally. No accessory muscle use. CTAB. GASTROINTESTINAL: Abdomen soft, non-tender, nondistended with positive bowel sounds. No masses appreciated. MUSCULOSKELETAL: No cyanosis or edema. Strength grossly WNL. No calf tenderness bilaterally. NEURO/PSYCH: Afocal. Awake, alert, and oriented x3. Normal speech and interaction with medical examiners. (Adarsh Church MD R2) A/P Assessment and Plan 61-year-old female, history of bilateral mastectomy in 2014, presenting with right breast cellulitis. Discharge Planning Likely today with continued antibiotics as outpatient. Patient follow-up with PCP and Dr. Amato as an outpatient. (Adarsh Church MD R2) Attending Attestation Patient seen and examined. Case reviewed and discussed with the resident team. Agree with plan of care as discussed with me and documented in the resident note. on exam she is markedly better with barely any erythema or edema. agree on going home with po abx. also discussed with her that she could have BRCA as she has 3 maternal aunts with breast ca plus her. She has already had bilateral mastectomy and oophorectomy so she has been treated as if she has this. However , I discussed with her that her children could inherit this if it "runs in the family". She will read about this and consider the test as an outpt with her primary or [employer] (Aranza Solares MD) Problem List: (1) Cellulitis of breast ICD Codes: N61.0 - Mastitis without abscess Status: Acute Plan: Rapidly progressive erythema over right breast implant - Ultrasound of breast: No ultrasound evidence of skin thickening or subcutaneous fluid collection - Primary surgeon Dr. Bryan has been consulted; agrees with plan. can be notified if patient is still in-house tomorrow night - Line has been drawn surrounding rash of cellulitis, improvement from her admission as documented above. Medications: - IV vancomycin 1 g at 250 ML's per hour; 1 mg twice a day ordered, pharmacy consulted for dressing (03/04 - 03/07) - Status post clindamycin 600 mg IV once in ED - IV fluids discontinued as patient is tolerating fluids by mouth - Patient to be discharged home with Bactrim DS twice a day for 10 days (2) Sepsis ICD Codes: A41.9 - Sepsis, unspecified organism Status: Acute Plan: Leukocytosis of 16, tachycardia, and temp of 101 at home with likely source of infection being the right breast. - EKG within normal limits - Lactic acid 0.5 - Blood cultures: Negative to date (3) FEN/ PPX Status: Acute Plan: Fluids: Tolerating fluids by mouth Electrolytes: Within normal limits Nutrition: Regular diet DVT prophylaxis: Heparin 5000 3 times a day, SCDs and teds (Adarsh Church MD R2) Problem Qualifiers (1) Sepsis: Qualified Codes: A41.9 - Sepsis, unspecified organism Adarsh Church MD R2 Mar 06, 2017 10:09 Aranza Solares MD Mar 06, 2017 13:24
[2017-03-06] MEDS ORDERED: BACT800T5 PO (10:11)
--- NOTE | 2017-03-06 10:12 | HHI.DCPOC ---
Discharge Care Plan Diagnosis: (1) Cellulitis of breast (2) Sepsis Goals to Promote Your Health * To prevent worsening of your condition and complications * To maintain your health at the optimal level Directions to Meet Your Goals Take your medications as prescribed Follow your dietary instruction Follow activity as directed Keep your appointments as scheduled Take your immunizations and boosters as scheduled If your symptoms worsen call your PCP, if no PCP go to Urgent Care Center or Emergency Room Smoking is Dangerous to Your Health. Avoid second hand smoke Call the 24-hour hour crisis hotline for domestic abuse at Adarsh Church MD R2 Mar 06, 2017 10:12
[2017-03-06 11:01] LABS: AUTOMATED NEUTROPHIL # 5.8 TH/MM3 (1.8-7.7); BASOPHIL # 0.1 TH/MM3 (0-0.2); BASOPHIL % 0.7 % (0.0-2.0); EOSINOPHIL # 0.1 TH/MM3 (0-0.4); EOSINOPHIL % 1.4 % (0.0-4.0); HEMATOCRIT 34.8 % (35.0-46.0); HEMO FLAGS DIFF FINAL; LYMPH % 29.9 % (9.0-44.0); LYMPHOCYTE # 2.8 TH/MM3 (1.0-4.8); MEAN CELL VOLUME 92.1 FL (80.0-100.0); MEAN CORPUSCULAR HEMOGLOBIN 31.7 PG (27.0-34.0); MEAN CORPUSCULAR HGB CONC 34.4 % (32.0-36.0); MONO % 6.5 % (0.0-8.0); NEUT % 61.5 % (16.0-70.0); PLATELET COUNT 239 TH/MM3 (150-450); RED BLOOD COUNT 3.78 MIL/MM3 (4.00-5.30); RED CELL DISTRIBUTION WIDTH 13.5 % (11.6-17.2); WHITE BLOOD COUNT 9.4 TH/MM3 (4.0-11.0)
[2017-03-06 11:21] LABS: BICARBONATE 22.4 MEQ/L (21.0-32.0); POTASSIUM 3.8 MEQ/L (3.5-5.1)
--- NOTE | 2017-03-06 11:42 | HHI.DS ---
Discharge Summary Admission Date Mar 04, 2017 at 14:43 Discharge Date: Mar 06, 2017 Admitting Diagnosis sepsis, cellulitis right breast (1) Cellulitis of breast Diagnosis: Principal Plan: Rapidly progressive erythema over right breast implant - Ultrasound of breast: No ultrasound evidence of skin thickening or subcutaneous fluid collection - Primary surgeon Dr. Bryan has been consulted; agrees with plan. can be notified if patient is still in-house tomorrow night - Line has been drawn surrounding rash of cellulitis, improvement from her admission as documented above. Medications: - IV vancomycin 1 g at 250 ML's per hour; 1 mg twice a day ordered, pharmacy consulted for dressing (03/04 - 03/07) - Status post clindamycin 600 mg IV once in ED - IV fluids discontinued as patient is tolerating fluids by mouth - Patient to be discharged home with Bactrim DS twice a day for 10 days ICD Codes: N61.0 - Mastitis without abscess Status: Acute (2) Sepsis Diagnosis: Principal Plan: Leukocytosis of 16, tachycardia, and temp of 101 at home with likely source of infection being the right breast. - EKG within normal limits - Lactic acid 0.5 - Blood cultures: Negative to date ICD Codes: A41.9 - Sepsis, unspecified organism Status: Acute (3) FEN/ PPX Diagnosis: Principal Plan: Fluids: Tolerating fluids by mouth Electrolytes: Within normal limits Nutrition: Regular diet DVT prophylaxis: Heparin 5000 3 times a day, SCDs and teds Status: Acute Brief History Ms Sauceda is a 61-year-old female, with a history of breast cancer s/p bilateral mastectomy in 2014, presenting with right breast pain and erythema since 7:30 PM the night before admission. Patient did not notice any abnormal pain or redness on her breast this week until last night at 7:30 PM when she noticed a sharp pain in her right breast. The pain got worse overnight getting worse every hour until 7:30 AM the morning of admission when the pain was at its maximum. She also noted the right breast was getting more swollen Patient also notices 7:30 this morning that her head hurt, she felt feverish, and she was very thirsty. She took her temperature sublingually with her home thermometer and it was 101. She came to the ER right away. On review of systems, the patient notes that she was more fatigued than usual this week and she also felt on multiple occasions that she had blurry vision. Unsure if this is related. She did have a colonoscopy on Monday and does not recall any complications of the procedure. Overnight, she has remained stable. Her infection is not worsening but not markedly improved either. CBC/BMP: 03/06/17 1050 03/06/17 1050 Significant Findings Laboratory Tests Test 03/04/17 13:30 03/05/17 08:17 03/06/17 10:50 White Blood Count 16.5 TH/MM3 (4.0-11.0) 13.4 TH/MM3 (4.0-11.0) Mean Platelet Volume 6.3 FL (7.0-11.0) 6.9 FL (7.0-11.0) Neutrophils (%) (Auto) 74.1 % (16.0-70.0) 72.0 % (16.0-70.0) Neutrophils # (Auto) 12.3 TH/MM3 (1.8-7.7) 9.6 TH/MM3 (1.8-7.7) Monocytes # (Auto) 1.2 TH/MM3 (0-0.9) Aspartate Amino Transf (AST/SGOT) 10 U/L (15-37) Potassium Level 3.3 MEQ/L (3.5-5.1) Estimat Glomerular Filtration Rate 70 ML/MIN (>89) Red Blood Count 3.88 MIL/MM3 (4.00-5.30) 3.78 MIL/MM3 (4.00-5.30) Random Glucose 117 MG/DL (74-106) Calcium Level 8.3 MG/DL (8.5-10.1) 8.4 MG/DL (8.5-10.1) Chloride Level 110 MEQ/L (98-107) 112 MEQ/L (98-107) Hematocrit 34.8 % (35.0-46.0) PE at Discharge GENERAL: Well-nourished, well-developed patient female lying in bed in no acute distress. SKIN: Warm and dry. No rash. Right breast: Area of erythema outlined on the right breast, improved greatly from time of admission. Patient with decreased tenderness to palpation over all areas of the right breast. Continued mild swelling and warmth in comparison to her left breast. No palpable axillary, sternal, or clavicular lymph nodes. HEENT: Atraumatic, normocephalic with EOMI. MMM. No rhinorrhea. No visible JVD or LAD appreciated. CARDIOVASCULAR: Regular rate and rhythm without obvious murmurs, gallops, or rubs. RESPIRATORY: Breath sounds equal bilaterally. No accessory muscle use. CTAB. GASTROINTESTINAL: Abdomen soft, non-tender, nondistended with positive bowel sounds. No masses appreciated. MUSCULOSKELETAL: No cyanosis or edema. Strength grossly WNL. No calf tenderness bilaterally. NEURO/PSYCH: Afocal. Awake, alert, and oriented x3. Normal speech and interaction with medical examiners. Hospital Course Patient was admitted to the hospital and given multiple IV fluid boluses as she was currently septic. She was admitted and started on vancomycin twice a day after receiving clindamycin in the ER once. She was also placed on heparin 5000 units every 8 hours for DVT prophylaxis. During her hospital stay her erythema, warmth, and edema improved each day. On hospital day 3 the patient was discharged home with a prescription for Bactrim DS twice a day for 10 days, completing a total of 14 days of antibiotics. Her heparin was discontinued at the time of discharge. She will follow-up with her PCP as well as Dr. Bryan, her plastic surgeon, within the week. At the time of discharge the patient was stable and had no complaints. Pt Condition on Discharge: Stable Discharge Instructions Follow up Referrals: PCP Follow-up - 1 Week Plastic Surgery - 1 Week with Yadiel Bryan MD New Medications: Sulfamethoxazole-Trimethoprim (Bactrim DS) 800-160 Mg Tab 1 TAB PO BID for Infection, #20 TAB 0 Refills Continued Medications: Miscellaneous (No Current Meds) Misc 0 Refills Adarsh Church MD R2 Mar 06, 2017 11:42
[2017-03-06 12:00] VITALS: BP 97/53; PULSE 61; RESP 18; TEMP 98; O2SAT 95
[2017-03-06] MEDS ORDERED: PHARMACY ORDERED LAB ONE (23:45)
== END 2017-03-06 12:52 | disposition home or self-care (01) | DRG 872 ==
LOC: NEPD 11:40 → NEDA 14:43 → NEDH 19:29 → NEPFCDU 21:47 → HOCB 03-05 10:17
PROVIDERS: ADMIT Family Medicine; ATTEND Family Medicine
DX: A41.9 Sepsis, unspecified organism (principal); E87.6 Hypokalemia; N61.0 Mastitis without abscess; F17.210 Nicotine dependence, cigarettes, uncomplicated; Z85.3 Personal history of malignant neoplasm of breast; Z98.82 Breast implant status
CPT/HCPCS: 76642; 76937; 80048; 80053; 83605; 85025; 87040; 96365; J1644; J3370; J7030; J7050

== ENCOUNTER 2017-04-21 19:13 | Inpatient (IN) | payer BC ==
[~2017-04-21] VITALS: Ht 165.1 cm; Wt 53.0 kg
[~2017-04-21 19:13] MED LIST changes: +BACT800T5 PO
[2017-04-21 19:14] VITALS: BP 175/77; PULSE 111; RESP 16; TEMP 100.9; O2SAT 95
[2017-04-21] MEDS ORDERED: SODIUM CHLOR 0.9% 1000 ML INJ 1,000 ML IV SCH (20:00)
[2017-04-21] MEDS ORDERED: VANCOMYCIN INJ 1,000 MG in SODIUM CHLOR 0.9% 250 ML INJ 250 ML IV ONE (20:00)
[2017-04-21] MEDS ORDERED: PIPERACIL-TAZO 3.375 GM PREMIX 50 ML IV ONE (20:00)
[2017-04-21 20:04] VITALS: O2SAT 99
--- NOTE | 2017-04-21 20:06 | PD ---
HPI Chief Complaint: Fever Time Seen by Provider: 19:44 Travel History International Travel<30 days: No Contact w/Intl Traveler<30days: No Traveled to known affect area: No History of Present Illness HPI 61-year-old female complains of fever, pain swelling of the right breast. Patient has history of breast cancer status post bilateral mastectomy with reconstructive implants in 2014 patient was admitted to [facility] February 2016 discharged March 06 for sepsis and right breast cellulitis. Patient was given prescription for Bactrim DS for 2 weeks. Patient states that she has been doing well until today. Patient Started having fever with increasing pain and swelling of the right breast. Patient denies any headache. Patient denies any chest pain or shortness of breath. Patient denies abdominal pain. Patient denies any nausea vomiting diarrhea. PFSH Past Medical History Hx Anticoagulant Therapy: No Cancer: Yes (breast) Cardiovascular Problems: No Chemotherapy: No Cerebrovascular Accident: No Diabetes: No Diminished Hearing: No Endocrine: No Genitourinary: No Immune Disorder: No Musculoskeletal: No Neurologic: No Psychiatric: No Reproductive: No Respiratory: No Radiation Therapy: No Tetanus Vaccination: < 5 Years Influenza Vaccination: No ?: Not Menopausal: Yes Past Surgical History Abdominal Surgery: Yes (hysterectomy) AICD: No Arteriovenous Shunt: No Cardiac Surgery: No Ear Surgery: No Endocrine Surgery: No Eye Surgery: No Genitourinary Surgery: No Gynecologic Surgery: Yes (hysterectomy) Hysterectomy: Yes Insulin Pump: No Joint Replacement: No Oral Surgery: Yes (full upper denture) Pacemaker: No Thoracic Surgery: Yes (bilateral mastectomy) Other Surgery: Yes (hysterectomy, double mastectomy, lysis of abdominal adhesions) Social History Alcohol Use: Yes (1-2 WEEK) Tobacco Use: Yes (1 PK DAY) Substance Use: No Allergies-Medications (Allergen,Severity, Reaction): Coded Allergies: No Known Allergies (Verified , 06/16/08) Reported Meds & Prescriptions Reported Meds & Active Scripts Active No Active Prescriptions or Reported Medications Review of Systems General / Constitutional: Positive: Fever Eyes: No: Visual changes HENT: No: Headaches Cardiovascular: No: Chest Pain or Discomfort Respiratory: No: Shortness of Breath Gastrointestinal: No: Abdominal Pain Genitourinary: No: Dysuria Musculoskeletal: No: Pain Skin: No Rash Neurologic: No: Weakness Psychiatric: No: Depression Endocrine: No: Polydipsia Hematologic/Lymphatic: No: Easy Bruising Physical Exam Narrative GENERAL: Well-nourished, well-developed patient. SKIN: Focused skin assessment warm/dry. HEAD: Normocephalic. EYES: No scleral icterus. No injection or drainage. NECK: Supple, trachea midline. No JVD or lymphadenopathy. CARDIOVASCULAR: Regular rate and rhythm without murmurs, gallops, or rubs. RESPIRATORY: Breath sounds equal bilaterally. No accessory muscle use. GASTROINTESTINAL: Abdomen soft, non-tender, nondistended. MUSCULOSKELETAL: No cyanosis, or edema. BACK: Nontender without obvious deformity. No CVA tenderness. Patient has redness swelling tenderness right breast. No induration noted. No skin dimpling noted. Data Data Last Documented VS Vital Signs Date Time Temp Pulse Resp B/P (MAP) Pulse Ox O2 Delivery O2 Flow Rate FiO2 04/21/17 22:00 91 16 126/63 (84) 97 Room Air 04/21/17 19:14 100.9 Orders Orders Complete Blood Count With Diff (04/21/17 19:51) Comprehensive Metabolic Panel (04/21/17 19:51) Prothrombin Time / Inr (Pt) (04/21/17 19:51) Act Partial Throm Time (Ptt) (04/21/17 19:51) Blood Culture (04/21/17 19:51) Urinalysis - C+S If Indicated (04/21/17 19:51) Chest, Single Ap (04/21/17 19:51) Iv Access Insert/Monitor (04/21/17 19:51) Ecg Monitoring (04/21/17 19:51) Oximetry (04/21/17 19:51) Lactic Acid (04/21/17 19:51) Sodium Chlor 0.9% 1000 Ml Inj (Ns 1000 M (04/21/17 20:00) Vancomycin Inj (Vancomycin Inj) (04/21/17 20:00) Piperacil-Tazo 3.375 Gm Premix (Zosyn 3. (04/21/17 20:00) Us Breast Unilateral (04/21/17 ) Labs Laboratory Tests Test 04/21/17 20:00 White Blood Count 18.1 TH/MM3 Red Blood Count 4.65 MIL/MM3 Hemoglobin 14.4 GM/DL Hematocrit 42.6 % Mean Corpuscular Volume 91.5 FL Mean Corpuscular Hemoglobin 30.9 PG Mean Corpuscular Hemoglobin Concent 33.7 % Red Cell Distribution Width 14.2 % Platelet Count 394 TH/MM3 Mean Platelet Volume 6.6 FL Neutrophils (%) (Auto) 86.7 % Lymphocytes (%) (Auto) 8.9 % Monocytes (%) (Auto) 3.7 % Eosinophils (%) (Auto) 0.3 % Basophils (%) (Auto) 0.4 % Neutrophils # (Auto) 15.7 TH/MM3 Lymphocytes # (Auto) 1.6 TH/MM3 Monocytes # (Auto) 0.7 TH/MM3 Eosinophils # (Auto) 0.0 TH/MM3 Basophils # (Auto) 0.1 TH/MM3 CBC Comment DIFF FINAL Differential Comment Prothrombin Time 10.4 SEC Prothromb Time International Ratio 0.9 RATIO Activated Partial Thromboplast Time 27.2 SEC Blood Urea Nitrogen 11 MG/DL Creatinine 0.83 MG/DL Random Glucose 119 MG/DL Total Protein 7.9 GM/DL Albumin 4.2 GM/DL Calcium Level 9.5 MG/DL Alkaline Phosphatase 67 U/L Aspartate Amino Transf (AST/SGOT) 11 U/L Alanine Aminotransferase (ALT/SGPT) 18 U/L Total Bilirubin 0.5 MG/DL Sodium Level 135 MEQ/L Potassium Level 3.7 MEQ/L Chloride Level 104 MEQ/L Carbon Dioxide Level 23.3 MEQ/L Anion Gap 8 MEQ/L Estimat Glomerular Filtration Rate 70 ML/MIN Lactic Acid Level 0.8 mmol/L MDM Medical Decision Making Medical Screen Exam Complete: Yes Emergency Medical Condition: Yes Interpretation(s) Last Impressions Chest X-Ray 04/21/17 195 Signed Impressions: Service Date/Time: Friday, April 21, 2017 20:06 - CONCLUSION: No acute disease. Neeraj Goldberg MD Breast Ultrasound 04/21/17 0000 Signed Impressions: Service Date/Time: Friday, April 21, 2017 21:51 - CONCLUSION: Suspected inflammatory change and edema seen superficially on the right side. This is superficial to the implant. Neeraj Goldberg MD 10:56 PM. CBC WBC 18.1. 86 neutrophil. Sodium 135. Lactic acid 0.8. Differential Diagnosis Differential diagnosis including cellulitis, abscess, sepsis. Narrative Course 61-year-old female with fever, redness swelling tenderness right breast. History of breast cancer status post bilateral mastectomy with reconstructive implants 2014. Normal saline solution 100 cc an hour. Vancomycin 1 g IV. Zosyn 3.375 g IV. Diagnosis Primary Impression: Mastitis Admitting Information Admitting Physician Requests: Admit Scripts No Active Prescriptions or Reported Meds Jacob Figueroa MD Apr 21, 2017 20:06
[2017-04-21 20:20] LABS: AUTOMATED NEUTROPHIL # 15.7 TH/MM3 (1.8-7.7); BASOPHIL # 0.1 TH/MM3 (0-0.2); BASOPHIL % 0.4 % (0.0-2.0); EOSINOPHIL % 0.3 % (0.0-4.0); HEMATOCRIT 42.6 % (35.0-46.0); HEMO FLAGS DIFF FINAL; LYMPH % 8.9 % (9.0-44.0); LYMPHOCYTE # 1.6 TH/MM3 (1.0-4.8); MEAN CELL VOLUME 91.5 FL (80.0-100.0); MEAN CORPUSCULAR HEMOGLOBIN 30.9 PG (27.0-34.0); MEAN CORPUSCULAR HGB CONC 33.7 % (32.0-36.0); MONO % 3.7 % (0.0-8.0); NEUT % 86.7 % (16.0-70.0); PLATELET COUNT 394 TH/MM3 (150-450); RED BLOOD COUNT 4.65 MIL/MM3 (4.00-5.30); RED CELL DISTRIBUTION WIDTH 14.2 % (11.6-17.2); WHITE BLOOD COUNT 18.1 TH/MM3 (4.0-11.0)
[2017-04-21 20:32] LABS: ANION GAP 8 MEQ/L (5-15); AST (GOT) 11 U/L (15-37); BICARBONATE 23.3 MEQ/L (21.0-32.0); BLOOD UREA NITROGEN 11 MG/DL (7-18); CHLORIDE 104 MEQ/L (98-107); GLOMERULAR FILTRATION RATE 70 ML/MIN (>89); POTASSIUM 3.7 MEQ/L (3.5-5.1); SODIUM (NA) 135 MEQ/L (136-145)
[2017-04-21 20:35] LABS: ALKALINE PHOSPHATASE 67 U/L (45-117); ALT (GPT) 18 U/L (10-53); TOTAL BILIRUBIN ADULT 0.5 MG/DL (0.2-1.0)
[2017-04-21 20:45] LABS: APTT (PATIENT) 27.2 SEC (24.3-30.1); INTERNATIONAL NORMALIZED RATIO 0.9 RATIO; PROTHROMBIN TIME - PATIENT 10.4 SEC (9.8-11.6)
--- NOTE | 2017-04-21 21:04 | RADRPT ---
EXAM DATE/TIME: 04/21/2017 20:06 [facility] COMPARISON: No previous studies available for comparison. INDICATIONS : Fever. MEDICAL HISTORY : None. SURGICAL HISTORY : Mastectomy, bilateral. ENCOUNTER: Initial ACUITY: 2 days PAIN SCORE: 0/10 LOCATION: Bilateral chest FINDINGS: A single view of the chest demonstrates the lungs to be symmetrically aerated without evidence of mas s, infiltrate or effusion. The cardiomediastinal contours are unremarkable. Osseous structures are intact. CONCLUSION: No acute disease. Neeraj Goldberg MD on April 21, 2017 at 21:03 Board Certified Radiologist. This report was verified electronically.
[2017-04-21 22:00] VITALS: BP 126/63; PULSE 91; RESP 16; O2SAT 97
--- NOTE | 2017-04-21 22:28 | RADRPT ---
EXAM DATE/TIME: 04/21/2017 21:51 [facility] COMPARISON: US BREAST RIGHT, March 04, 2017, 13:33. INDICATIONS : Right breast redness and tenderness. MEDICAL HISTORY : Tobacco use. Fever. SURGICAL HISTORY : Mastectomy, bilateral. Hysterectomy. Bilateral breast implants. ENCOUNTER: Subsequent ACUITY: 2 days PAIN SCORE: 6/10 LOCATION: Right breast. FINDINGS: Apparently the patient is status post bilateral mastectomy. Bilateral implants are present. There díaz s appear to be some superficial edema seen on the right side. A well-formed abscess or hematoma is no t seen. There is increased hyperemia seen on the right side compared to the left side which can sugge st inflammatory change. CONCLUSION: Suspected inflammatory change and edema seen superficially on the right side. This is superficial to the implant. Neeraj Goldberg MD on April 21, 2017 at 22:23 Board Certified Radiologist. This report was verified electronically.
[2017-04-21] MEDS ORDERED: Vancomycin Consult Pharmacy 1 EA OTHER SCH (23:15)
[2017-04-21] MEDS ORDERED: SODIUM CHLORIDE 0.9% FLUSH 10 ML FLUSH IV FLUSH PRN (23:15)
[2017-04-21] MEDS ORDERED: LACTULOSE SYRUP 20 GM/30 ML CUP PO PRN (23:15)
[2017-04-21] MEDS ORDERED: SENNOSIDES 8.6 MG TAB PO PRN (23:15)
[2017-04-21] MEDS ORDERED: MORPHINE SULFATE 4 MG/ML INJ IV PUSH PRN (23:15)
[2017-04-21] MEDS ORDERED: BISACODYL 10 MG SUPP RECTAL PRN (23:15)
[2017-04-21] MEDS ORDERED: MAGNESIUM HYDROXIDE SUSP 30 ML CUP PO PRN (23:15)
[2017-04-21] MEDS ORDERED: ONDANSETRON HCL 4 MG/2 ML VIAL IVP PRN (23:15)
--- NOTE | 2017-04-21 23:20 | HHI.HP ---
[facility] Jackson Pyle DO Admission Diagnosis right mastitis Diagnoses: (1) Sepsis Diagnosis: Principal (2) Mastitis Diagnosis: Principal (3) Dehydration Diagnosis: Principal (4) HTN (hypertension) Diagnosis: Principal (5) Tobacco abuse Diagnosis: Principal Travel History International Travel<30 Days: No Contact w/Intl Traveler <30 Da: No Traveled to Known Affected Are: No History of Present Illness This is a 7-year-old female with a PMH of Breast CA s/p Bilateral Mastectomy and HTN who presented to the ER w/ complaints of right breast swelling, redness and tenderness starting today. Also notes subjective fever/chills. States similar symptoms back in February 2016 at which time she was admitted for Sepsis. On arrival, BP 135/77, HR 111, O2 sat 99% on RA, Temp 100.9. WBC 18.1. Chemistry unremarkable except for GFR 70. INR 0.9. Breast US with suspected inflammatory changes and edema on the right side, no abscess. CXR with no acute findings. Review of Systems Except as stated in HPI: all other systems reviewed are Neg ROS: 14 point review of systems otherwise negative. Past Family Social History Past Medical History PMH: Breast CA s/p Bilateral Mastectomy and HTN Past Surgical History PAST SURGICAL HISTORY: Hysterectomy, Bilateral Mastectomy, Dental Extraction, Lysis of Adhesions Allergies: Coded Allergies: No Known Allergies (Verified , 06/16/08) Family History PAST FAMILY HISTORY: Reviewed. No h/o DM or CAD Social History PAST SOCIAL HISTORY: Occasional alcohol. Smokes 1ppd. Negative for drugs. Physical Exam Vital Signs Vital Signs Date Time Temp Pulse Resp B/P (MAP) Pulse Ox O2 Delivery O2 Flow Rate FiO2 04/21/17 22:00 91 16 126/63 (84) 97 Room Air 04/21/17 20:04 99 Room Air 04/21/17 19:14 100.9 111 16 175/77 (109) 95 Physical Exam PE: GENERAL: Middle-aged female in no acute distress. HEENT: PERRLA, EOMI. No scleral icterus or conjunctival pallor. No lid lag or facial droop. CARDIOVASCULAR: Regular rate and rhythm. No obvious murmurs to auscultation. No chest tenderness to palpation. Right breast erythema, tenderness to palpation RESPIRATORY: No obvious rhonchi or wheezing. Clear to auscultation. Breath sounds equal bilaterally. GASTROINTESTINAL: Abdomen soft, non-tender, nondistended. BS normal. MUSCULOSKELETAL: Extremities without clubbing, cyanosis, or edema. No obvious deformities. NEUROLOGICAL: Awake, alert and oriented x4. No focal neurologic deficits. Moving both upper and lower extremities spontaneously. Laboratory Laboratory Tests Test 04/21/17 20:00 White Blood Count 18.1 Red Blood Count 4.65 Hemoglobin 14.4 Hematocrit 42.6 Mean Corpuscular Volume 91.5 Mean Corpuscular Hemoglobin 30.9 Mean Corpuscular Hemoglobin Concent 33.7 Red Cell Distribution Width 14.2 Platelet Count 394 Mean Platelet Volume 6.6 Neutrophils (%) (Auto) 86.7 Lymphocytes (%) (Auto) 8.9 Monocytes (%) (Auto) 3.7 Eosinophils (%) (Auto) 0.3 Basophils (%) (Auto) 0.4 Neutrophils # (Auto) 15.7 Lymphocytes # (Auto) 1.6 Monocytes # (Auto) 0.7 Eosinophils # (Auto) 0.0 Basophils # (Auto) 0.1 CBC Comment DIFF FINAL Differential Comment Prothrombin Time 10.4 Prothromb Time International Ratio 0.9 Activated Partial Thromboplast Time 27.2 Blood Urea Nitrogen 11 Creatinine 0.83 Random Glucose 119 Total Protein 7.9 Albumin 4.2 Calcium Level 9.5 Alkaline Phosphatase 67 Aspartate Amino Transf (AST/SGOT) 11 Alanine Aminotransferase (ALT/SGPT) 18 Total Bilirubin 0.5 Sodium Level 135 Potassium Level 3.7 Chloride Level 104 Carbon Dioxide Level 23.3 Anion Gap 8 Estimat Glomerular Filtration Rate 70 Lactic Acid Level 0.8 Date/Time Source Procedure Growth Status 04/21/17 20:05 Blood Peripheral Aerobic Blood Culture Pending Received 04/21/17 20:05 Blood Peripheral Anaerobic Blood Culture Pending Received Result Diagram: 04/21/17199904/21/171999 Caprini VTE Risk Assessment Caprini VTE Risk Assessment: No/Low Risk (score <= 1) Caprini Risk Assessment Model Point Value = 1 Point Value = 2 Point Value = 3 Point Value = 5 Age 41-60 Minor surgery BMI > 25 kg/m2 Swollen legs Varicose veins or History of unexplained or recurrent spontaneous Oral contraceptives or hormone replacement Sepsis (< 1 month) Serious lung disease, including pneumonia (< 1 month) Abnormal pulmonary function Acute myocardial infarction Congestive heart failure (< 1 month) History of inflammatory bowel disease Medical patient at bed rest Age 61-74 Arthroscopic surgery Major open surgery (> 45 min) Laparoscopic surgery (> 45 min) Malignancy Confined to bed (> 72 hours) Immobilizing plaster cast Central venous access Age >= 75 History of VTE Family history of VTE Factor V Leiden Prothrombin [id number] Lupus anticoagulant Anticardiolipin antibodies Elevated serum homocysteine Heparin-induced thrombocytopenia Other congenital or acquired thrombophilia Stroke (< 1 month) Elective arthroplasty Hip, pelvis, or leg fracture Acute spinal cord injury (< 1 month) Prophylaxis Regimen Total Risk Factor Score Risk Level Prophylaxis Regimen 0-1 Low Early ambulation 2 Moderate Order ONE of the following: *Sequential Compression Device (SCD) *Heparin 5000 units SQ BID 3-4 Higher Order ONE of the following medications: *Heparin 5000 units SQ TID *Enoxaparin/Lovenox 40 mg SQ daily (WT < 150 kg, CrCl > 30 mL/min) *Enoxaparin/Lovenox 30 mg SQ daily (WT < 150 kg, CrCl > 10-29 mL/min) *Enoxaparin/Lovenox 30 mg SQ BID (WT < 150 kg, CrCl > 30 mL/min) AND/OR *Sequential Compression Device (SCD) 5 or more Highest Order ONE of the following medications: *Heparin 5000 units SQ TID (Preferred with Epidurals) *Enoxaparin/Lovenox 40 mg SQ daily (WT < 150 kg, CrCl > 30 mL/min) *Enoxaparin/Lovenox 30 mg SQ daily (WT < 150 kg, CrCl > 10-29 mL/min) *Enoxaparin/Lovenox 30 mg SQ BID (WT < 150 kg, CrCl > 30 mL/min) AND *Sequential Compression Device (SCD) Assessment and Plan Problem List: (1) Sepsis ICD Code: A41.9 - Sepsis, unspecified organism (2) Mastitis ICD Code: N61.0 - Mastitis without abscess Status: Acute (3) Dehydration ICD Code: E86.0 - Dehydration (4) HTN (hypertension) ICD Code: I10 - Essential (primary) hypertension (5) Tobacco abuse ICD Code: Z72.0 - Tobacco use Assessment and Plan A/P: 1. Sepsis: Temp 100.9, HR 114, WBC 18, Source-Mastitis. S/p Blood Cultures, Vanc/Zosyn. Follow up cultures, continue IV Abx. 2. Right Mastitis: acute onset of redness/swelling to right breast, + subjective fever/chills at home. Breast US w/ inflammatory change and edema on right, no abscess noted, images reviewed by me. S/p IV Abx and cultures as above. Continue w/ IV Abx, analgesics/antiemetics as needed. 3. Dehydration: GFR 70, previously 104 on 03/06/17. IVF for hydration, repeat labs in am. 4. Tobacco Abuse: Counselled. NicoDerm prn if needed. 5. DVT Prophylaxis: SCD/Teds. 6. Social work for dc planning as needed. 7. Case discussed w/ ER physician at length. Physician Certification 2 Midnight Certification Type: Admission for Inpatient Services Order for Inpatient Services The services are ordered in accordance with Medicare regulations or non- Medicare payer requirements, as applicable. In the case of services not specified as inpatient-only, they are appropriately provided as inpatient services in accordance with the 2-midnight benchmark. Estimated LOS (days): 2 days is the estimated time the patient will need to remain in the hospital, assuming treatment plan goals are met and no additional complications. Post-Hospital Plan: Not yet determined Leisa Bowen MD Apr 21, 2017 23:20
[2017-04-21] MEDS: SODIUM CHLOR 0.9% 1000 ML INJ 1,000 ML IV SCH (23:48)
[2017-04-22] VITALS (9 sets, daily range): BP systolic 105–125; BP diastolic 46–68; PULSE 86–95; RESP 16–20; TEMP 98.8–102.9; O2SAT 93–95
[2017-04-22] MEDS: ACETAMINOPHEN 325 MG TAB PO PRN ×2 (04:34→11:38)
[2017-04-22 05:19] LABS: AUTOMATED NEUTROPHIL # 14.7 TH/MM3 (1.8-7.7); BASOPHIL % 0.2 % (0.0-2.0); EOSINOPHIL % 0.1 % (0.0-4.0); HEMATOCRIT 37.1 % (35.0-46.0); HEMO FLAGS DIFF FINAL; LYMPH % 8.1 % (9.0-44.0); LYMPHOCYTE # 1.4 TH/MM3 (1.0-4.8); MEAN CELL VOLUME 92.1 FL (80.0-100.0); MEAN CORPUSCULAR HEMOGLOBIN 30.5 PG (27.0-34.0); MEAN CORPUSCULAR HGB CONC 33.2 % (32.0-36.0); MONO % 5.5 % (0.0-8.0); NEUT % 86.1 % (16.0-70.0); PLATELET COUNT 311 TH/MM3 (150-450); RED BLOOD COUNT 4.03 MIL/MM3 (4.00-5.30); WHITE BLOOD COUNT 17.1 TH/MM3 (4.0-11.0)
[2017-04-22 05:40] LABS: ALKALINE PHOSPHATASE 47 U/L (45-117); ALT (GPT) 15 U/L (10-53); ANION GAP 9 MEQ/L (5-15); AST (GOT) 6 U/L (15-37); BICARBONATE 21.3 MEQ/L (21.0-32.0); BLOOD UREA NITROGEN 9 MG/DL (7-18); CHLORIDE 108 MEQ/L (98-107); GLOMERULAR FILTRATION RATE 100 ML/MIN (>89); POTASSIUM 3.6 MEQ/L (3.5-5.1); SODIUM (NA) 138 MEQ/L (136-145); TOTAL BILIRUBIN ADULT 0.6 MG/DL (0.2-1.0)
[2017-04-22] MEDS: SODIUM CHLORIDE 0.9% FLUSH 10 ML FLUSH IV FLUSH SCH ×2 (08:31→21:00)
[2017-04-22] MEDS: DOCUSATE SODIUM 50 MG/SENNA 8.6 MG TAB PO SCH ×2 (09:00→21:00)
[2017-04-22] MEDS: CEFEPIME INJ 1,000 MG in SODIUM CHLORIDE 0.9% INJ 100 ML IV SCH ×2 (09:08→21:31)
[2017-04-22] MEDS: SODIUM CHLOR 0.9% 1000 ML INJ 1,000 ML IV SCH (12:38)
[2017-04-22] MEDS: VANCOMYCIN INJ 750 MG in SODIUM CHLOR 0.9% 250 ML INJ 250 ML IV SCH (16:53)
[2017-04-22] MEDS: ACETAMINOPHEN/HYDROcodone 325 MG/5 MG TAB PO PRN ×2 (16:57→21:30)
[2017-04-22 17:27] LABS: BLOOD, URINE NEG (NEG); GLUCOSE,URINE NEG (NEG); KETONE, URINE TRACE mg/dL (NEG); NITRITE,URINE NEG (NEG); URINE COLOR LIGHT-YELLOW (YELLW/STRAW)
[2017-04-22 17:28] LABS: COMMENT (UR) CULT NOT INDICATED; CULTURE IF INDICATED CULT NOT INDICATED
--- NOTE | 2017-04-22 20:09 | HHI.PR ---
Subjective Remarks Patient c/o of pain and tenderness as well as erythema over left breast. had fever earlier w a Tmax of 102 denies cp/sob stable bp Objective Vitals Vital Signs Date Time Temp Pulse Resp B/P (MAP) Pulse Ox O2 Delivery O2 Flow Rate FiO2 04/22/17 17:53 99.2 04/22/17 16:56 100.8 86 16 122/65 (84) 94 04/22/17 14:19 100.0 04/22/17 12:39 102.9 04/22/17 11:33 102.4 95 18 125/68 (87) 95 04/22/17 08:30 100.0 86 18 114/68 (83) 94 04/22/17 08:12 86 04/22/17 01:20 90 04/22/17 01:20 100.9 88 20 108/64 (79) 94 04/22/17 00:55 04/21/17 22:00 91 16 126/63 (84) 97 Room Air I/O 04/21/17 04/21/17 04/21/17 04/22/17 04/22/17 04/22/17 06:59 14:59 22:59 06:59 14:59 22:59 Intake Total 1050 ml 1247 ml 684 ml Balance 1050 ml 1247 ml 684 ml Intake Oral 480 ml IV Total 1050 ml 767 ml 684 ml # Voids 2 Result Diagram: 04/22/17 0443 04/22/17 0443 Imaging Last Impressions Chest X-Ray 04/21/17 195 Signed Impressions: Service Date/Time: Friday, April 21, 2017 20:06 - CONCLUSION: No acute disease. Neeraj Goldberg MD Breast Ultrasound 04/21/17 0000 Signed Impressions: Service Date/Time: Friday, April 21, 2017 21:51 - CONCLUSION: Suspected inflammatory change and edema seen superficially on the right side. This is superficial to the implant. Neeraj Goldberg MD Objective Remarks AAOx3, mild distress due to pain Lungs clear BL on exam left breast is sp mastectomy presents erythema and tenderness to palapation. A/P Problem List: (1) Sepsis ICD Code: A41.9 - Sepsis, unspecified organism (2) Mastitis ICD Code: N61.0 - Mastitis without abscess Status: Acute (3) Dehydration ICD Code: E86.0 - Dehydration (4) HTN (hypertension) ICD Code: I10 - Essential (primary) hypertension (5) Tobacco abuse ICD Code: Z72.0 - Tobacco use Assessment and Plan WBC slightly improved from 18k to 17k Continue IV antibiotics and IV fluids Pain control with [place] and IV morphine advised smoking cessation Will add PPI for GI prophylaxis. Add Lovenox SQ for DVT prophylaxis James Curran MD Apr 22, 2017 20:09
[2017-04-23] VITALS (10 sets, daily range): BP systolic 93–114; BP diastolic 51–60; PULSE 68–92; RESP 16–18; TEMP 97.2–99.9; O2SAT 93–98
[2017-04-23] MEDS: SODIUM CHLOR 0.9% 1000 ML INJ 1,000 ML IV SCH ×3 (00:23→23:50)
[2017-04-23] MEDS: ACETAMINOPHEN/HYDROcodone 325 MG/5 MG TAB PO PRN ×5 (01:56→23:48)
[2017-04-23] MEDS: VANCOMYCIN INJ 750 MG in SODIUM CHLOR 0.9% 250 ML INJ 250 ML IV SCH ×2 (04:58→16:20)
[2017-04-23] MEDS: CEFEPIME INJ 1,000 MG in SODIUM CHLORIDE 0.9% INJ 100 ML IV SCH (07:53)
[2017-04-23] MEDS: DOCUSATE SODIUM 50 MG/SENNA 8.6 MG TAB PO SCH ×2 (09:00→21:00)
[2017-04-23] MEDS: SODIUM CHLORIDE 0.9% FLUSH 10 ML FLUSH IV FLUSH SCH ×2 (09:00→21:00)
[2017-04-23] MEDS ORDERED: ACETAMINOPHEN/HYDROcodone 325 MG/5 MG TAB PO PRN (13:00)
--- NOTE | 2017-04-23 15:37 | HHI.PR ---
Subjective Remarks states left breast pain not controlled patient thinks that erythema is not improving. T max 99.9 denies cp/sob Objective Vitals Vital Signs Date Time Temp Pulse Resp B/P (MAP) Pulse Ox O2 Delivery O2 Flow Rate FiO2 04/23/17 12:09 99.2 77 18 102/58 (73) 95 04/23/17 07:38 97.8 84 18 114/60 (78) 93 04/23/17 05:02 98.2 76 16 106/51 (69) 94 04/23/17 02:19 92 04/23/17 00:26 99.9 86 16 112/53 (72) 94 04/22/17 20:10 98.8 88 18 105/46 (65) 93 04/22/17 17:53 99.2 04/22/17 16:56 100.8 86 16 122/65 (84) 94 I/O 04/22/17 04/22/17 04/22/17 04/23/17 04/23/17 04/23/17 07:00 15:00 23:00 07:00 15:00 23:00 Intake Total 1247 ml 684 ml 1934 ml Balance 1247 ml 684 ml 1934 ml Intake Oral 480 ml IV Total 767 ml 684 ml 1934 ml # Voids 2 3 # Bowel Movements 1 Result Diagram: 04/22/17 0443 04/22/17 0443 Imaging Last Impressions Chest X-Ray 04/21/171950 Signed Impressions: Service Date/Time: Friday, April 21, 2017 20:06 - CONCLUSION: No acute disease. Neeraj Goldberg MD Breast Ultrasound 04/21/17 0000 Signed Impressions: Service Date/Time: Friday, April 21, 2017 21:51 - CONCLUSION: Suspected inflammatory change and edema seen superficially on the right side. This is superficial to the implant. Neeraj Goldberg MD Objective Remarks AAOx3, mild distress due to pain Lungs clear BL on exam left breast is sp mastectomy presents erythema and tenderness to palapation. Medications and IVs Current Medications Medications (Trade) Dose Ordered Sig/Hector Route Start Time Stop Time Status Last Admin Pharmacy Profile Note 0 ml @ 0 mls/hr UNSCH OTHER 04/21/17 23:15 Cefepime HCl 1000 mg/Sodium Chloride 100 ml @ 200 mls/hr Q12H IV 04/22/17 09:00 04/23/17 07:53 Sodium Chloride 1,000 ml @ 100 mls/hr Q10H IV 04/21/17 23:12 04/23/17 14:52 (NS Flush) 2 ml UNSCH PRN IV FLUSH 04/21/17 23:15 (NS Flush) 2 ml BID IV FLUSH 04/22/17 09:00 (Zofran Inj) 4 mg Q6H PRN IVP 04/21/17 23:15 (Tylenol) 650 mg Q6H PRN PO 04/21/17 23:15 04/22/17 11:38 (Gely-Colace) 1 tab BID PO 04/22/17 09:00 (Milk Of Magnesia Liq) 30 ml Q12H PRN PO 04/21/17 23:15 (Senokot) 17.2 mg Q12H PRN PO 04/21/17 23:15 (Dulcolax Supp) 10 mg DAILY PRN RECTAL 04/21/17 23:15 (Lactulose Liq) 30 ml DAILY PRN PO 04/21/17 23:15 Vancomycin HCl 750 mg/Sodium Chloride 257.5 ml @ 250 mls/hr Q12H IV 04/22/17 16:00 04/23/17 04:58 Miscellaneous Information SPECIFIC LAB TO BE DRAWN:VANCO DATE TO... ONCE ONCE .XX 04/24/17 03:45 04/24/17 03:46 ([place] 5-325 Mg) 1 tab Q4H PRN PO 04/23/17 13:00 ([place] 5-325 Mg) 2 tab Q4H PRN PO 04/23/17 13:00 04/23/17 13:22 Urinary Catheter: No Vascular Central Line Catheter: No A/P Problem List: (1) Sepsis ICD Code: A41.9 - Sepsis, unspecified organism (2) Mastitis ICD Code: N61.0 - Mastitis without abscess Status: Acute (3) Dehydration ICD Code: E86.0 - Dehydration (4) HTN (hypertension) ICD Code: I10 - Essential (primary) hypertension (5) Tobacco abuse ICD Code: Z72.0 - Tobacco use Assessment and Plan WBC slightly improved from 18k to 17k Continue IV antibiotics and IV fluids - DC IV Cefepime, change to IV xosyn Patient does not want Iv morphine for pain control. DC IV morphine. Will Rx [place] 5/325 mg for pain 1-4 and 10/325 for pain 5 - 10. advised smoking cessation Continue PPI for GI prophylaxis Continue Lovenox SQ for DVT prophylaxis Discharge Planning Continue to monitor in the medical floor. James Curran MD Apr 23, 2017 15:37
[2017-04-23 16:26] LABS: AUTOMATED NEUTROPHIL # 11.3 TH/MM3 (1.8-7.7); BASOPHIL % 0.2 % (0.0-2.0); EOSINOPHIL # 0.1 TH/MM3 (0-0.4); EOSINOPHIL % 0.9 % (0.0-4.0); HEMATOCRIT 30.8 % (35.0-46.0); HEMO FLAGS DIFF FINAL; LYMPH % 13.7 % (9.0-44.0); MEAN CELL VOLUME 92.4 FL (80.0-100.0); MEAN CORPUSCULAR HEMOGLOBIN 31.5 PG (27.0-34.0); MEAN CORPUSCULAR HGB CONC 34.1 % (32.0-36.0); MONO % 6.4 % (0.0-8.0); NEUT % 78.8 % (16.0-70.0); PLATELET COUNT 231 TH/MM3 (150-450); RED BLOOD COUNT 3.33 MIL/MM3 (4.00-5.30); RED CELL DISTRIBUTION WIDTH 13.8 % (11.6-17.2); WHITE BLOOD COUNT 14.3 TH/MM3 (4.0-11.0)
[2017-04-23 16:42] LABS: ANION GAP 9 MEQ/L (5-15); AST (GOT) 10 U/L (15-37); BICARBONATE 22.7 MEQ/L (21.0-32.0); BLOOD UREA NITROGEN 7 MG/DL (7-18); CHLORIDE 106 MEQ/L (98-107); GLOMERULAR FILTRATION RATE 115 ML/MIN (>89); POTASSIUM 3.3 MEQ/L (3.5-5.1); SODIUM (NA) 138 MEQ/L (136-145)
[2017-04-23 16:46] LABS: ALKALINE PHOSPHATASE 48 U/L (45-117); ALT (GPT) 12 U/L (10-53); TOTAL BILIRUBIN ADULT 0.3 MG/DL (0.2-1.0)
[2017-04-23] MEDS: PIPERACIL-TAZO 4.5 GM PREMIX 100 ML IV SCH ×2 (18:15→23:49)
[2017-04-24] VITALS (7 sets, daily range): BP systolic 108–125; BP diastolic 60–70; PULSE 68–80; RESP 16–18; TEMP 98–98.8; O2SAT 93–96
[2017-04-24] MEDS ORDERED: PHARMACY ORDERED LAB ONE (03:45)
[2017-04-24] MEDS: VANCOMYCIN INJ 750 MG in SODIUM CHLOR 0.9% 250 ML INJ 250 ML IV SCH (04:49)
[2017-04-24] MEDS: ACETAMINOPHEN/HYDROcodone 325 MG/5 MG TAB PO PRN ×5 (04:52→19:22)
[2017-04-24 06:30] LABS: AUTOMATED NEUTROPHIL # 6.9 TH/MM3 (1.8-7.7); BASOPHIL % 0.3 % (0.0-2.0); EOSINOPHIL # 0.1 TH/MM3 (0-0.4); EOSINOPHIL % 1.4 % (0.0-4.0); HEMATOCRIT 31.6 % (35.0-46.0); HEMO FLAGS DIFF FINAL; LYMPH % 20.1 % (9.0-44.0); MEAN CELL VOLUME 93.1 FL (80.0-100.0); MEAN CORPUSCULAR HEMOGLOBIN 31.6 PG (27.0-34.0); MEAN CORPUSCULAR HGB CONC 33.9 % (32.0-36.0); MONO % 7.2 % (0.0-8.0); PLATELET COUNT 237 TH/MM3 (150-450); RED BLOOD COUNT 3.39 MIL/MM3 (4.00-5.30); RED CELL DISTRIBUTION WIDTH 13.7 % (11.6-17.2); WHITE BLOOD COUNT 9.8 TH/MM3 (4.0-11.0)
[2017-04-24 06:49] LABS: ANION GAP 8 MEQ/L (5-15); AST (GOT) 12 U/L (15-37); BICARBONATE 23.7 MEQ/L (21.0-32.0); BLOOD UREA NITROGEN 5 MG/DL (7-18); CHLORIDE 107 MEQ/L (98-107); GLOMERULAR FILTRATION RATE 100 ML/MIN (>89); MAGNESIUM 2.1 MG/DL (1.5-2.5); POTASSIUM 3.2 MEQ/L (3.5-5.1); SODIUM (NA) 139 MEQ/L (136-145)
[2017-04-24 06:51] LABS: ALT (GPT) 13 U/L (10-53)
[2017-04-24 06:52] LABS: ALKALINE PHOSPHATASE 51 U/L (45-117); TOTAL BILIRUBIN ADULT 0.4 MG/DL (0.2-1.0)
[2017-04-24] MEDS: PIPERACIL-TAZO 4.5 GM PREMIX 100 ML IV SCH ×3 (08:27→23:45)
[2017-04-24] MEDS: DOCUSATE SODIUM 50 MG/SENNA 8.6 MG TAB PO SCH ×2 (08:31→19:22)
[2017-04-24] MEDS ORDERED: POTASSIUM CHLORIDE 10 MEQ CONTROLLED RELEASE TAB PO ONE (09:00)
[2017-04-24] MEDS: SODIUM CHLORIDE 0.9% FLUSH 10 ML FLUSH IV FLUSH SCH ×2 (09:00→21:00)
--- NOTE | 2017-04-24 09:40 | HHI.PR ---
Subjective Remarks patient c/o of drainage of serous yellow tinged fluid from right breast - new onset since last night denies fevers/chills wbc trending down Objective Vitals Vital Signs Date Time Temp Pulse Resp B/P (MAP) Pulse Ox O2 Delivery O2 Flow Rate FiO2 04/24/17 08:30 98.7 68 18 112/64 (80) 95 04/24/17 04:00 98.8 78 16 119/67 (84) 93 04/24/17 00:12 72 04/23/17 23:39 98.4 68 16 104/53 (70) 95 04/23/17 21:00 98.8 77 16 93/51 (65) 95 04/23/17 20:06 71 04/23/17 15:46 97.2 78 18 105/52 (69) 98 04/23/17 12:09 99.2 77 18 102/58 (73) 95 I/O 04/23/17 04/23/17 04/23/17 04/24/17 04/24/17 04/24/17 06:59 14:59 22:59 06:59 14:59 22:59 Intake Total 1934 ml 1585 ml Output Total 1450 ml Balance 1934 ml 135 ml Intake Oral 480 ml IV Total 1934 ml 1105 ml Output Urine Total 1450 ml # Voids 3 # Bowel Movements 1 Result Diagram: 04/24/17 0444 04/24/17 0444 Imaging Last Impressions Chest X-Ray 04/21/171950 Signed Impressions: Service Date/Time: Friday, April 21, 2017 20:06 - CONCLUSION: No acute disease. Neeraj Goldberg MD Breast Ultrasound 04/21/17 0000 Signed Impressions: Service Date/Time: Friday, April 21, 2017 21:51 - CONCLUSION: Suspected inflammatory change and edema seen superficially on the right side. This is superficial to the implant. Neeraj Goldberg MD Objective Remarks AAOx3, mild distress due to pain Lungs clear BL on exam left breast is sp mastectomy presents erythema and mild tenderness to palpation overall inflammation seems to be better. abdomen soft, NT, ND no edema in lower extremities Medications and IVs Current Medications Medications (Trade) Dose Ordered Sig/Hector Route Start Time Stop Time Status Last Admin Pharmacy Profile Note 0 ml @ 0 mls/hr UNSCH OTHER 04/21/17 23:15 Sodium Chloride 1,000 ml @ 100 mls/hr Q10H IV 04/21/17 23:12 04/23/17 23:50 (NS Flush) 2 ml UNSCH PRN IV FLUSH 04/21/17 23:15 (NS Flush) 2 ml BID IV FLUSH 04/22/17 09:00 (Zofran Inj) 4 mg Q6H PRN IVP 04/21/17 23:15 (Tylenol) 650 mg Q6H PRN PO 04/21/17 23:15 04/22/17 11:38 (Gely-Colace) 1 tab BID PO 04/22/17 09:00 (Milk Of Magnesia Liq) 30 ml Q12H PRN PO 04/21/17 23:15 (Senokot) 17.2 mg Q12H PRN PO 04/21/17 23:15 (Dulcolax Supp) 10 mg DAILY PRN RECTAL 04/21/17 23:15 (Lactulose Liq) 30 ml DAILY PRN PO 04/21/17 23:15 Vancomycin HCl 750 mg/Sodium Chloride 257.5 ml @ 250 mls/hr Q12H IV 04/22/17 16:00 04/24/17 04:49 ([place] 5-325 Mg) 1 tab Q4H PRN PO 04/23/17 13:00 ([place] 5-325 Mg) 2 tab Q4H PRN PO 04/23/17 13:00 04/24/17 08:31 Piperacillin Sod/ Tazobactam Sod 100 ml @ 200 mls/hr Q8H IV 04/23/17 16:00 04/24/17 08:27 (K-Phos Neutral) 250 mg Q8HR PO 04/24/17 14:00 A/P Problem List: (1) Sepsis ICD Code: A41.9 - Sepsis, unspecified organism (2) Mastitis ICD Code: N61.0 - Mastitis without abscess Status: Acute (3) Dehydration ICD Code: E86.0 - Dehydration (4) HTN (hypertension) ICD Code: I10 - Essential (primary) hypertension (5) Tobacco abuse ICD Code: Z72.0 - Tobacco use Assessment and Plan Leukocytosis resolved Continue IV antibiotics and IV fluids - Initially on IV Cefepime and IV Vancomycin. Cefepime discontinued on 04/23, patient now on IV Zosyn. Patient does not want Iv morphine for pain control. DC IV morphine. Will Rx [place] 5/325 mg for pain 1-4 and 10/325 for pain 5 - 10. pain seems to be better controlled. There is new onset of clear drainage - will order MRI right breast to r/o rupture. breast us obtained on admission only showed inflammatory changes. advised smoking cessation Continue PPI for GI prophylaxis Continue Lovenox SQ for DVT prophylaxis Discharge Planning Continue to monitor in the medical floor. James Curran MD Apr 24, 2017 09:40
--- NOTE | 2017-04-24 13:17 | RADRPT ---
EXAM DATE/TIME: 04/24/2017 11:28 [place] COMPARISON: No previous studies available for comparison. INDICATIONS : Right breast abscess. MEDICAL HISTORY : Tobacco use. Fever. SURGICAL HISTORY : Mastectomy, bilateral. Hysterectomy. Bilateral breast implants. ENCOUNTER: Subsequent ACUITY: 4-6 days PAIN SCORE: 10/10 LOCATION: Right breast. FINDINGS: Targeted sonogram over the right breast is obtained the patient has palpable lump. This corresponds w ith a fold of the implant. There is some minimal fluid adjacent to the implant by no organized absces s identified. CONCLUSION: Palpable lump corresponds with a fold in the implant. Minimal fluid adjacent to the implant but no de finite abscess. Breast implant leak cannot be excluded. Rebel Argueta MD on April 24, 2017 at 13:13 Board Certified Radiologist. This report was verified electronically.
[2017-04-24] MEDS: VANCOMYCIN 1,000 MG/NS 250 ML IV SCH ×2 (14:04)
[2017-04-24] MEDS: POTASSIUM PHOSPHATE/SODIUM PHOSPHATE 250 MG TAB PO SCH ×2 (17:42→21:08)
[2017-04-24] MEDS: SODIUM CHLOR 0.9% 1000 ML INJ 1,000 ML IV SCH ×2 (21:12→23:57)
--- NOTE | 2017-04-24 22:40 | MB ---
cc: ARAMIS LUCERO MD DATE OF CONSULTATION 04/24/2017 [facility] consult note DATE OF 1955 HISTORY OF PRESENT ILLNESS Ms. 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 Jefferson Mejia. She then had a implant based reconstruction by Dr. Bryan in September of 2015. She did not receive any adjuvant radiation, chemotherapy or endocrine therapy as this was DCIS with removal of breast tissue. She was previously hospitalized on March 04, 2017 to March 06, 2017 for a cellulitis of the right breast. Ultrasound at that time with no evidence of skin thickening or subcutaneous fluid collection. She was placed on IV antibiotics with vancomycin and clindamycin and she was discharged home with 10 days of double strength Bactrim. She again presents with right breast swelling and tenderness and a temperature to 100.9 on admission. She was started on broad-spectrum antibiotics with vancomycin and Zosyn. Right breast ultrasound showed a palpable lump corresponds with the fold in the implant, minimal fluid adjacent to the implant but no definitive abscess. Breast implant leak cannot be excluded. The ultrasound from April 21 shows a suspected inflammatory change and edema seen superficially on the right side. This is superficial to the implants. LABORATORY DATA White blood cell count of 18.1 on admission, hemoglobin of 14.4 on admission and a platelet count of 394. Elevated absolute neutrophil count on admission. Today white blood cell count is 9.8, hemoglobin is 10.7 and platelet count is 237 with a normal differential. Chemistry studies reveal a normal creatinine, low AST, normal ALT. Low total protein and low albumin at 5.9 and 2.5, respectively. Coags within normal limits. PAST MEDICAL HISTORY 1. DCIS status post bilateral mastectomy [place] [address] Jefferson Mejia with implant based reconstruction by Dr. Bryan. 2. Bowel obstruction in October 2016 which required a laparoscopy for lysis of adhesions with an allergic reaction to succinylcholine. PAST SURGICAL HISTORY 1. Bilateral mastectomy in 2016. 2. Lysis of adhesions in October of 2016. 3. Total abdominal hysterectomy in 2000. ALLERGIES No known drug allergies. FAMILY HISTORY Three aunts with a history of breast cancer. SOCIAL HISTORY She smokes one half-pack a day for several years. No alcohol or illegal drug use. She has a good support system. CURRENT MEDICATIONS 1. Zosyn. 2. Vancomycin. REVIEW OF SYSTEMS Positive for right breast pain and swelling and erythema. All other review of symptoms negative. PHYSICAL EXAMINATION GENERAL: Well-developed, well-nourished lady in no distress, walking around room. HEENT: Head normocephalic, atraumatic. Eyes, no scleral icterus. No conjunctival injection. Ear, nose, and throat, oropharynx clear. NECK: Supple with no palpable lymphadenopathy. CARDIOVASCULAR: Regular rate and rhythm with no murmurs. RESPIRATORY: Clear to auscultation bilaterally. ABDOMEN: Soft, nontender, nondistended with bowel sounds present. EXTREMITIES: Without edema. BREASTS: Bilateral implants. Right breast with redness, swelling and tenderness on the lower right side. No palpable axillary lymphadenopathy. NEUROLOGIC: No focal deficits. PSYCHIATRIC: Appropriate mood and affect. ASSESSMENT/PLAN 1. DCIS status post bilateral mastectomy in 2014. 2. Right breast erythema and swelling consistent with a cellulitis. Surgery team following and will consider implant removal. MD MARIUM Lockett/ISMAEL /6:07 PM /10:23 PM SVITLANA
[2017-04-25] VITALS (10 sets, daily range): BP systolic 103–140; BP diastolic 60–82; PULSE 59–70; RESP 16–18; TEMP 97.8–99.2; O2SAT 91–100
[2017-04-25] MEDS: ACETAMINOPHEN/HYDROcodone 325 MG/5 MG TAB PO PRN ×6 (00:03→22:08)
[2017-04-25] MEDS: VANCOMYCIN 1,000 MG/NS 250 ML IV SCH ×4 (01:32→13:24)
[2017-04-25] MEDS: POTASSIUM PHOSPHATE/SODIUM PHOSPHATE 250 MG TAB PO SCH ×3 (05:17→22:07)
--- NOTE | 2017-04-25 06:49 | MB ---
cc: LALA MILLAN M.D. DATE OF CONSULTATION 04/24/2017 REASON FOR CONSULTATION Right breast redness, possible cellulitis and periprosthetic fluid collection, possible infection. HISTORY This is a 61-year-old white female who originally was diagnosed with left breast cancer in June 2015 time frame. She had mastectomy and immediate reconstruction with Style 4100 teardrop design implants placed by Dr. Bryan on both sides. The mastectomy was done by Dr. Jefferson Mejia. The patient had ductal carcinoma in situ on the left only and no cancer on the right. She was not required to have any chemotherapy or radiation therapy. She did well for nearly a year. Her last visit with Dr. Bryan may have been in June 2016. The patient was admitted at [facility] through the ER with erythema right breast in mid-February 2017 and was treated and released with IV antibiotic and sent home on oral antibiotic. At that time the diagnosis was cellulitis. No fluid collection was noted. At that visit she was kept in the hospital for a couple of days and eventually was referred back to Dr. Bryan to see him in the office. The patient says that she did go to Dr. Bryan about two weeks ago and was feeling better and the right breast was not red at that time. She did say that impression was that her both breasts had some degree of problem, right more so than the left; however, the ER records during the February 2017 visit only indicate right breast redness and swelling. The WBC count at that point was 16.5. The patient currently has been admitted for the same problem as of April 21, 2017. She has been placed on IV antibiotics. The right breast has remained red and swollen today. Apparently the patient had some fluid leaking out of the center of the breast through possibly a very small pinhole type of opening and the patient says that the total volume of the fluid that came out was significant to the point that it soaked up a large ABD pad a couple of times and after that it stopped. A culture sample apparently has been taken from the fluid in the morning. She also had a breast ultrasound done on April 21 when she came in and no fluid was noted and again she had a second ultrasound done this afternoon a couple of hours back but it was after the incident of the fluid leakage. The fluid has been sent for a culture and a Gram's stain today and it is still pending. The patient also came in with a blood count of 18.1 WBC count which has progressively improved going to 17.1, 14.3 over the last couple of days and today it is 9.8. Her vital signs have been within normal range as far as the temperature is concerned. The patient originally had taken her temperatures sublingually with her on a thermometer at home before the admission on 04/21 and it was recorded as 101. The other significant history is that the patient is a chronic smoker for the past 30 years, smoking as much as 1-1/2 packs per day and has not stopped smoking. The patient currently wants to keep her reconstruction if it is possible. PAST MEDICAL HISTORY History of the breast cancer on the left and the surgery. She is not diabetic, does not have an significant bleeding issues. No hypertension. OB HISTORY She has had five pregnancies, three the children. PAST SURGICAL HISTORY 1. Hysterectomy. 2. The breast surgery. SOCIAL HISTORY Significant use of tobacco. She also drinks alcohol one to two drinks per week. Denies any drug abuse. ALLERGIES None. CURRENT MEDICATIONS AT HOME None. REVIEW OF SYSTEMS Otherwise negative for any recent acute changes other than the one in the breast. PHYSICAL EXAMINATION GENERAL: Examination shows a 61-year-old white female with stable vital signs. She is somewhat thin built but otherwise appears healthy. VITAL SIGNS: Within normal range. She is not febrile. GENERAL EXAMINATION: Deferred to those findings on the admission records. BREASTS: Local examination of the breasts shows bilaterally reconstructed breasts with inframammary surgical incisions and also a periareolar mastectomy with a circular closure of the central defect. The approximate volume on the left side appears to be around 450 cc. The approximate volume on the right side appears to be close to 550 cc, both including the soft tissues and the enclosed prosthesis. The right breast is red covering approximately 70-80% of the soft tissues. It is edematous including the stretch moss are swollen. The breast is slightly warm to touch, not very hot. There is no active leakage noted. There is no leakage even on trying to gently squeeze the flap and the prosthesis. The opening as pointed out by the patient was in the center of the breast; however, there is no visible opening at the present time. The left side again is similar except that the flap is not red. The patient had been operated on by Dr. Bryan. A call was made to his office and the information received over the phone indicates that the right side has a 360 cc teardrop style 410 implant while the left side has a 410 cc teardrop style [address] Bryan is currently out of town. I did send him a couple of pictures of the current breast status with permission from the patient. RECOMMENDATIONS The patient can currently continue on the IV antibiotics and the observation clinically particularly that her temperature is normal, that her white count has come back to normal and on the ultrasound of the breast there is no significant amount of fluid noted. If the current situation changes, worsens or any of the other clinical indicators worsen, the patient may need the right breast prosthesis completely removed and the area debrided and allowed to heal. A future reconstruction may need to be done after several months of letting the infection clear. Also, the microbiology culture will be checked as it becomes available. The patient, if she decides to have her current treatment at [facility], I will be available to manage her. If she does want to go back to Dr. Bryan either in his office or through [facility] where Dr. Bryan has privileges, that also can be facilitated. Thank you for the consult. MD LORI Dyer/GERTRUDE /7:42 PM /6:25 AM
[2017-04-25 07:01] LABS: AUTOMATED NEUTROPHIL # 4.1 TH/MM3 (1.8-7.7); BASOPHIL % 0.4 % (0.0-2.0); EOSINOPHIL # 0.2 TH/MM3 (0-0.4); EOSINOPHIL % 2.2 % (0.0-4.0); HEMATOCRIT 27.6 % (35.0-46.0); HEMO FLAGS DIFF FINAL; LYMPH % 32.6 % (9.0-44.0); LYMPHOCYTE # 2.3 TH/MM3 (1.0-4.8); MEAN CELL VOLUME 92.6 FL (80.0-100.0); MEAN CORPUSCULAR HGB CONC 34.6 % (32.0-36.0); MONO % 6.3 % (0.0-8.0); NEUT % 58.5 % (16.0-70.0); PLATELET COUNT 223 TH/MM3 (150-450); RED BLOOD COUNT 2.98 MIL/MM3 (4.00-5.30); RED CELL DISTRIBUTION WIDTH 13.6 % (11.6-17.2)
[2017-04-25 07:32] LABS: ANION GAP 8 MEQ/L (5-15); AST (GOT) 16 U/L (15-37); BICARBONATE 23.8 MEQ/L (21.0-32.0); BLOOD UREA NITROGEN 3 MG/DL (7-18); CHLORIDE 111 MEQ/L (98-107); GLOMERULAR FILTRATION RATE 113 ML/MIN (>89); POTASSIUM 3.5 MEQ/L (3.5-5.1); SODIUM (NA) 143 MEQ/L (136-145)
[2017-04-25 07:49] LABS: ALKALINE PHOSPHATASE 64 U/L (45-117); ALT (GPT) 19 U/L (10-53); TOTAL BILIRUBIN ADULT 0.3 MG/DL (0.2-1.0)
[2017-04-25] MEDS: PIPERACIL-TAZO 4.5 GM PREMIX 100 ML IV SCH ×2 (08:34→17:05)
[2017-04-25] MEDS: SODIUM CHLORIDE 0.9% FLUSH 10 ML FLUSH IV FLUSH SCH ×2 (08:35→21:00)
[2017-04-25] MEDS: DOCUSATE SODIUM 50 MG/SENNA 8.6 MG TAB PO SCH ×2 (08:35→22:07)
--- NOTE | 2017-04-25 11:47 | PD.PLAS.PN ---
Subjective Remarks Patient stable, Right breast still reddish but not leaking any more Size same - not increased Afebrile, WBC down to 7.0 I have spoken to Dr. Bryan this morning, he will see her in the office either tomorrow or later this week as appropriate. Gram stain from the right breast is showing no bacteria Actual culture still pending. OK to discharge from my standpoint as soon as ok with the medical team FU with Dr. Bryan in his office. Vital Signs Date Time Temp Pulse Resp B/P (MAP) Pulse Ox O2 Delivery O2 Flow Rate FiO2 04/25/17 11:08 97.8 60 18 103/64 (77) 95 04/25/17 08:16 98.5 61 18 128/64 (85) 94 04/25/17 05:11 98.0 60 16 140/74 (96) 96 04/25/17 04:05 59 04/25/17 00:01 61 04/24/17 23:42 98.3 72 16 125/70 (88) 94 04/24/17 19:20 98.0 80 16 125/66 (85) 96 04/24/17 16:39 98.4 70 16 108/60 (76) I/O 04/24/17 04/24/17 04/24/17 04/25/17 04/25/17 04/25/17 06:59 14:59 22:59 06:59 14:59 22:59 Intake Total 1585 ml 100 ml 730 ml 2260 ml Output Total 1450 ml Balance 135 ml 100 ml 730 ml 2260 ml Intake Oral 480 ml 480 ml 650 ml IV Total 1105 ml 100 ml 250 ml 1610 ml Output Urine Total 1450 ml # Voids 3 6 # Bowel Movements 1 Laboratory Tests Test 04/25/17 04:56 White Blood Count 7.0 Red Blood Count 2.98 Hemoglobin 9.5 Hematocrit 27.6 Mean Corpuscular Volume 92.6 Mean Corpuscular Hemoglobin 32.0 Mean Corpuscular Hemoglobin Concent 34.6 Red Cell Distribution Width 13.6 Platelet Count 223 Mean Platelet Volume 6.9 Neutrophils (%) (Auto) 58.5 Lymphocytes (%) (Auto) 32.6 Monocytes (%) (Auto) 6.3 Eosinophils (%) (Auto) 2.2 Basophils (%) (Auto) 0.4 Neutrophils # (Auto) 4.1 Lymphocytes # (Auto) 2.3 Monocytes # (Auto) 0.4 Eosinophils # (Auto) 0.2 Basophils # (Auto) 0.0 CBC Comment DIFF FINAL Differential Comment Blood Urea Nitrogen 3 Creatinine 0.55 Random Glucose 80 Total Protein 5.4 Albumin 2.4 Calcium Level 7.9 Alkaline Phosphatase 64 Aspartate Amino Transf (AST/SGOT) 16 Alanine Aminotransferase (ALT/SGPT) 19 Total Bilirubin 0.3 Sodium Level 143 Potassium Level 3.5 Chloride Level 111 Carbon Dioxide Level 23.8 Anion Gap 8 Estimat Glomerular Filtration Rate 113 Date/Time Source Procedure Growth Status 04/21/17 20:05 Blood Peripheral Aerobic Blood Culture - Preliminary NO GROWTH IN 4 DAYS Resulted 04/21/17 20:05 Blood Peripheral Anaerobic Blood Culture - Preliminary NO GROWTH IN 4 DAYS Resulted 04/24/17 06:28 Wound Skin Gram Stain - Final Resulted 04/24/17 06:28 Wound Skin Wound Culture Pending Resulted Result Diagram: 04/25/17 0456 04/25/17 0456 Andrey Guy MD Apr 25, 2017 11:47
[2017-04-25] MEDS: SODIUM CHLOR 0.9% 1000 ML INJ 1,000 ML IV SCH (13:44)
--- NOTE | 2017-04-25 16:38 | HHI.PR ---
Subjective Remarks Patient denies fevers/chills denies cp/sob states pain is better denies further breast discharge Objective Vitals Vital Signs Date Time Temp Pulse Resp B/P (MAP) Pulse Ox O2 Delivery O2 Flow Rate FiO2 04/25/17 12:19 97.8 60 18 103/64 (77) 95 04/25/17 11:08 97.8 60 18 103/64 (77) 95 04/25/17 08:16 98.5 61 18 128/64 (85) 94 04/25/17 05:11 98.0 60 16 140/74 (96) 96 04/25/17 04:05 59 04/25/17 00:01 61 04/24/17 23:42 98.3 72 16 125/70 (88) 94 04/24/17 19:20 98.0 80 16 125/66 (85) 96 04/24/17 16:39 98.4 70 16 108/60 (76) I/O 04/24/17 04/24/17 04/24/17 04/25/17 04/25/17 04/25/17 07:00 15:00 23:00 07:00 15:00 23:00 Intake Total 1585 ml 100 ml 730 ml 2260 ml 350 ml Output Total 1450 ml Balance 135 ml 100 ml 730 ml 2260 ml 350 ml Intake Oral 480 ml 480 ml 650 ml IV Total 1105 ml 100 ml 250 ml 1610 ml 350 ml Output Urine Total 1450 ml # Voids 3 6 # Bowel Movements 1 Result Diagram: 04/25/17 0456 04/25/17 0456 Imaging Last Impressions Breast Ultrasound 04/24/17 0000 Signed Impressions: Service Date/Time: Monday, April 24, 2017 11:28 - CONCLUSION: Palpable lump corresponds with a fold in the implant. Minimal fluid adjacent to the implant but no definite abscess. Breast implant leak cannot be excluded. Rebel Argueta MD Chest X-Ray 04/21/171950 Signed Impressions: Service Date/Time: Friday, April 21, 2017 20:06 - CONCLUSION: No acute disease. Neeraj Goldberg MD Objective Remarks AAOx3, mild distress due to pain Lungs clear BL Left breast still presents erythema, warmth and mild tenderness to palpation abdomen soft, NT, ND no edema in lower extremities Medications and IVs Current Medications Medications (Trade) Dose Ordered Sig/Hector Route Start Time Stop Time Status Last Admin Pharmacy Profile Note 0 ml @ 0 mls/hr UNSCH OTHER 04/21/17 23:15 Sodium Chloride 1,000 ml @ 100 mls/hr Q10H IV 04/21/17 23:12 04/25/17 13:44 (NS Flush) 2 ml UNSCH PRN IV FLUSH 04/21/17 23:15 (NS Flush) 2 ml BID IV FLUSH 04/22/17 09:00 (Zofran Inj) 4 mg Q6H PRN IVP 04/21/17 23:15 (Tylenol) 650 mg Q6H PRN PO 04/21/17 23:15 04/22/17 11:38 (Gely-Colace) 1 tab BID PO 04/22/17 09:00 04/24/17 19:22 (Milk Of Magnesia Liq) 30 ml Q12H PRN PO 04/21/17 23:15 (Senokot) 17.2 mg Q12H PRN PO 04/21/17 23:15 (Dulcolax Supp) 10 mg DAILY PRN RECTAL 04/21/17 23:15 (Lactulose Liq) 30 ml DAILY PRN PO 04/21/17 23:15 ([place] 5-325 Mg) 1 tab Q4H PRN PO 04/23/17 13:00 ([place] 5-325 Mg) 2 tab Q4H PRN PO 04/23/17 13:00 04/25/17 13:23 Piperacillin Sod/ Tazobactam Sod 100 ml @ 200 mls/hr Q8H IV 04/23/17 16:00 04/25/17 08:34 (K-Phos Neutral) 250 mg Q8HR PO 04/24/17 14:00 04/25/17 13:22 Vancomycin HCl 1000 mg/Sodium Chloride 250 ml @ 250 mls/hr Q12H IV 04/24/17 14:00 04/25/17 13:24 Miscellaneous Information SPECIFIC LAB TO BE DRAWN:VANCOMY... ONCE ONCE .XX 04/26/17 01:45 04/26/17 01:46 A/P Problem List: (1) Sepsis ICD Code: A41.9 - Sepsis, unspecified organism (2) Mastitis ICD Code: N61.0 - Mastitis without abscess Status: Acute (3) Dehydration ICD Code: E86.0 - Dehydration (4) HTN (hypertension) ICD Code: I10 - Essential (primary) hypertension (5) Tobacco abuse ICD Code: Z72.0 - Tobacco use Assessment and Plan Leukocytosis resolved Continue IV antibiotics and IV fluids - Initially on IV Cefepime and IV Vancomycin. Cefepime discontinued on 04/23, patient now on IV Zosyn. Patient does not want Iv morphine for pain control. DC IV morphine. Will Rx [place] 5/325 mg for pain 1-4 and 10/325 for pain 5 - 10. pain seems to be controlled. There is new onset of clear drainage - will order MRI right breast to r/o rupture. breast us obtained on admission only showed inflammatory changes. wound culture is growing staph aureus. Follow-up sensitivities to decide on outpatient treatment. Blood cultures being followed, negative to date. advised smoking cessation Continue PPI for GI prophylaxis Continue Lovenox SQ for DVT prophylaxis Discharge Planning Possible discharge in a.m. pending sensitivities. James Curran MD Apr 25, 2017 16:38
--- NOTE | 2017-04-25 17:34 | PD.ONC.PN ---
Subjective Subjective Remarks Resting comfortably in bed in no distress. Reports that the pain, redness and swelling of her breast are still present. Objective Data Date Time Temp Pulse Resp B/P (MAP) Pulse Ox O2 Delivery O2 Flow Rate FiO2 04/25/17 16:36 98.5 70 18 112/82 (92) 91 04/25/17 12:19 97.8 60 18 103/64 (77) 95 04/25/17 11:08 97.8 60 18 103/64 (77) 95 04/25/17 08:16 98.5 61 18 128/64 (85) 94 04/25/17 05:11 98.0 60 16 140/74 (96) 96 04/25/17 04:05 59 04/25/17 00:01 61 04/24/17 23:42 98.3 72 16 125/70 (88) 94 04/24/17 19:20 98.0 80 16 125/66 (85) 96 04/25/17 04/25/17 04/25/17 06:59 14:59 22:59 Intake Total 2260 ml 1070 ml 120 ml Balance 2260 ml 1070 ml 120 ml Result Diagram: 04/25/17 0456 04/25/17 0456 Laboratory Results Laboratory Tests Test 04/25/17 04:56 White Blood Count 7.0 TH/MM3 Red Blood Count 2.98 MIL/MM3 Hemoglobin 9.5 GM/DL Hematocrit 27.6 % Mean Corpuscular Volume 92.6 FL Mean Corpuscular Hemoglobin 32.0 PG Mean Corpuscular Hemoglobin Concent 34.6 % Red Cell Distribution Width 13.6 % Platelet Count 223 TH/MM3 Mean Platelet Volume 6.9 FL Neutrophils (%) (Auto) 58.5 % Lymphocytes (%) (Auto) 32.6 % Monocytes (%) (Auto) 6.3 % Eosinophils (%) (Auto) 2.2 % Basophils (%) (Auto) 0.4 % Neutrophils # (Auto) 4.1 TH/MM3 Lymphocytes # (Auto) 2.3 TH/MM3 Monocytes # (Auto) 0.4 TH/MM3 Eosinophils # (Auto) 0.2 TH/MM3 Basophils # (Auto) 0.0 TH/MM3 CBC Comment DIFF FINAL Differential Comment Blood Urea Nitrogen 3 MG/DL Creatinine 0.55 MG/DL Random Glucose 80 MG/DL Total Protein 5.4 GM/DL Albumin 2.4 GM/DL Calcium Level 7.9 MG/DL Alkaline Phosphatase 64 U/L Aspartate Amino Transf (AST/SGOT) 16 U/L Alanine Aminotransferase (ALT/SGPT) 19 U/L Total Bilirubin 0.3 MG/DL Sodium Level 143 MEQ/L Potassium Level 3.5 MEQ/L Chloride Level 111 MEQ/L Carbon Dioxide Level 23.8 MEQ/L Anion Gap 8 MEQ/L Estimat Glomerular Filtration Rate 113 ML/MIN Culture Results Microbiology Date/Time Source Procedure Growth Status 04/24/17 06:28 Wound Skin Gram Stain - Final Resulted 04/24/17 06:28 Wound Culture - Preliminary Staphylococcus Aureus Resulted Administered Medications Medications (Trade) Dose Ordered Sig/Hector Route PRN Reason Start Time Stop Time Status Last Admin Dose Admin Sodium Chloride 1,000 ml @ 100 mls/hr Q10H IV 04/21/17 23:12 04/25/17 13:44 Acetaminophen (Tylenol) 650 mg Q6H PRN PO FEVER/PAIN SCALE 1 TO 2 04/21/17 23:15 04/22/17 11:38 Senna/Docusate Sodium (Gely-Colace) 1 tab BID PO 04/22/17 09:00 04/24/17 19:22 Acetaminophen/ Hydrocodone Bitart ([place] 5-325 Mg) 2 tab Q4H PRN PO PAIN SCALE 5 TO 10 04/23/17 13:00 04/25/17 13:23 Piperacillin Sod/ Tazobactam Sod 100 ml @ 200 mls/hr Q8H IV 04/23/17 16:00 04/25/17 17:05 Potassium Phos/ Sodium Phos (K-Phos Neutral) 250 mg Q8HR PO 04/24/17 14:00 04/25/17 13:22 Vancomycin HCl 1000 mg/Sodium Chloride 250 ml @ 250 mls/hr Q12H IV 04/24/17 14:00 04/25/17 13:24 Objective Remarks GENERAL: Well-nourished, well-developed patient. SKIN: Warm and dry. HEAD: Normocephalic. EYES: No scleral icterus. No injection or drainage. RESPIRATORY: No accessory muscle use. NEUROLOGICAL: No obvious focal deficit. Awake, alert, and oriented x3. PSYCHIATRIC: Appropriate mood and affect; insight and judgment normal. Breast: right breast with swelling, erythema and edema overlying implant Assessment/Plan Assessment 1. 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 2. Cellulitis of right breast: on antibiotic therapy. Wound culture growing staph aureus. Awaiting culture results to direct antibiotic therapy. She has an outpatient appointment with Dr. Bryan for further follow up and discussion of removal of implants. 3. Anemia, normocytic: will perform work up to include iron profile, ferritin, vitamin B12, folate, reticulocyte count. She reports colonoscopy within the past year with repeat colonoscopy in 5 years. No evidence of hemolysis with normal bilirubin level. Most likely due to anemia of inflammation. Roxi Yancey MD Apr 25, 2017 17:34
[2017-04-25 21:18] LABS: REVIEW FLAG FINAL
[2017-04-25 21:56] LABS: FERRITIN 246 NG/ML (8-252); TRANSFERRIN IRON PROFILE 154 MG/DL (200-360)
[2017-04-26] VITALS (8 sets, daily range): BP systolic 115–150; BP diastolic 58–77; PULSE 62–81; RESP 16–18; TEMP 98.1–98.7; O2SAT 94–96
[2017-04-26] MEDS: PIPERACIL-TAZO 4.5 GM PREMIX 100 ML IV SCH ×2 (00:09→08:26)
[2017-04-26] MEDS: SODIUM CHLOR 0.9% 1000 ML INJ 1,000 ML IV SCH (00:10)
[2017-04-26] MEDS ORDERED: PHARMACY ORDERED LAB ONE (01:45)
[2017-04-26] MEDS: VANCOMYCIN 1,000 MG/NS 250 ML IV SCH ×4 (02:26→13:36)
[2017-04-26] MEDS: ACETAMINOPHEN/HYDROcodone 325 MG/5 MG TAB PO PRN ×2 (02:30→08:31)
[2017-04-26] MEDS: POTASSIUM PHOSPHATE/SODIUM PHOSPHATE 250 MG TAB PO SCH ×2 (06:24→13:36)
[2017-04-26] MEDS: DOCUSATE SODIUM 50 MG/SENNA 8.6 MG TAB PO SCH (08:26)
[2017-04-26] MEDS: SODIUM CHLORIDE 0.9% FLUSH 10 ML FLUSH IV FLUSH SCH ×2 (08:27→08:39)
--- NOTE | 2017-04-26 12:02 | HHI.PR ---
Subjective Remarks Left breast is paper machine backtender but improving denies further drainage from breast denies fevers or chills denies cp/sob Objective Vitals Vital Signs Date Time Temp Pulse Resp B/P (MAP) Pulse Ox O2 Delivery O2 Flow Rate FiO2 04/26/17 09:13 98.1 65 18 150/69 (96) 95 04/26/17 04:33 98.5 69 16 115/58 (77) 94 04/26/17 04:15 62 04/26/17 00:11 98.7 74 16 138/69 (92) 96 04/26/17 00:03 65 04/25/17 20:50 99.2 69 18 128/68 (88) 96 04/25/17 20:29 66 04/25/17 16:36 98.5 70 18 112/82 (92) 91 04/25/17 12:19 97.8 60 18 103/64 (77) 95 I/O 04/25/17 04/25/17 04/25/17 04/26/17 04/26/17 04/26/17 07:00 15:00 23:00 07:00 15:00 23:00 Intake Total 2260 ml 1070 ml 960 ml 1960 ml Balance 2260 ml 1070 ml 960 ml 1960 ml Intake Oral 650 ml 720 ml 960 ml 360 ml IV Total 1610 ml 350 ml 1600 ml # Voids 6 1 3 4 Result Diagram: 04/25/17 0456 04/25/17 0456 Imaging Last Impressions Breast Ultrasound 04/24/17 0000 Signed Impressions: Service Date/Time: Monday, April 24, 2017 11:28 - CONCLUSION: Palpable lump corresponds with a fold in the implant. Minimal fluid adjacent to the implant but no definite abscess. Breast implant leak cannot be excluded. Rebel Argueta MD Chest X-Ray 04/21/171950 Signed Impressions: Service Date/Time: Friday, April 21, 2017 20:06 - CONCLUSION: No acute disease. Neeraj Goldberg MD Objective Remarks AAOx3, mild distress due to pain Lungs clear BL Left breast still presents mild erythema, induration has improved, mild tenderness to palpation. No draiange. abdomen soft, NT, ND no edema in lower extremities Medications and IVs Current Medications Medications (Trade) Dose Ordered Sig/Hector Route Start Time Stop Time Status Last Admin Pharmacy Profile Note 0 ml @ 0 mls/hr UNSCH OTHER 04/21/17 23:15 Sodium Chloride 1,000 ml @ 100 mls/hr Q10H IV 04/21/17 23:12 04/26/17 00:10 (NS Flush) 2 ml UNSCH PRN IV FLUSH 04/21/17 23:15 (NS Flush) 2 ml BID IV FLUSH 04/22/17 09:00 (Zofran Inj) 4 mg Q6H PRN IVP 04/21/17 23:15 (Tylenol) 650 mg Q6H PRN PO 04/21/17 23:15 04/22/17 11:38 (Gely-Colace) 1 tab BID PO 04/22/17 09:00 04/26/17 08:26 (Milk Of Magnesia Liq) 30 ml Q12H PRN PO 04/21/17 23:15 (Senokot) 17.2 mg Q12H PRN PO 04/21/17 23:15 (Dulcolax Supp) 10 mg DAILY PRN RECTAL 04/21/17 23:15 (Lactulose Liq) 30 ml DAILY PRN PO 04/21/17 23:15 ([place] 5-325 Mg) 1 tab Q4H PRN PO 04/23/17 13:00 ([place] 5-325 Mg) 2 tab Q4H PRN PO 04/23/17 13:00 04/26/17 08:31 Piperacillin Sod/ Tazobactam Sod 100 ml @ 200 mls/hr Q8H IV 04/23/17 16:00 04/26/17 08:26 (K-Phos Neutral) 250 mg Q8HR PO 04/24/17 14:00 04/26/17 06:24 Vancomycin HCl 1000 mg/Sodium Chloride 250 ml @ 250 mls/hr Q12H IV 04/24/17 14:00 04/26/17 02:26 A/P Problem List: (1) Sepsis ICD Code: A41.9 - Sepsis, unspecified organism (2) Mastitis ICD Code: N61.0 - Mastitis without abscess Status: Acute (3) Dehydration ICD Code: E86.0 - Dehydration (4) HTN (hypertension) ICD Code: I10 - Essential (primary) hypertension (5) Tobacco abuse ICD Code: Z72.0 - Tobacco use Assessment and Plan Leukocytosis resolved Continue IV antibiotics and IV fluids - Initially on IV Cefepime and IV Vancomycin. Cefepime discontinued on 04/23, patient now on IV Zosyn. Patient does not want Iv morphine for pain control. DC IV morphine. Will Rx [place] 5/325 mg for pain 1-4 and 10/325 for pain 5 - 10. pain seems to be controlled. There is new onset of clear drainage - will order MRI right breast to r/o rupture. breast us obtained on admission only showed inflammatory changes. wound culture is growing MSSA. Will DC on oral Levaquin x 10 days. Blood cultures being followed, negative to date. advised smoking cessation Continue PPI for GI prophylaxis Continue Lovenox SQ for DVT prophylaxis Discharge Planning Possible discharge in a.m. pending sensitivities. James Curran MD Apr 26, 2017 12:02
[2017-04-26] MEDS ORDERED: BACT800T5 PO (12:05)
[2017-04-26] MEDS ORDERED: PERC5TAB12 PO (12:05)
--- NOTE | 2017-04-26 12:06 | HHI.DCPOC ---
Discharge Care Plan Diagnosis: (1) HTN (hypertension) (2) Sepsis (3) Tobacco abuse (4) Dehydration (5) Mastitis Goals to Promote Your Health * To prevent worsening of your condition and complications * To maintain your health at the optimal level Directions to Meet Your Goals Take your medications as prescribed Follow your dietary instruction Follow activity as directed Keep your appointments as scheduled Take your immunizations and boosters as scheduled If your symptoms worsen call your PCP, if no PCP go to Urgent Care Center or Emergency Room Smoking is Dangerous to Your Health. Avoid second hand smoke Call the 24-hour hour crisis hotline for domestic abuse at James Curran MD Apr 26, 2017 12:06
--- NOTE | 2017-04-26 12:15 | HHI.DS ---
Discharge Summary Admission Date Apr 21, 2017 at 23:17 Discharge Date: Apr 26, 2017 Admitting Diagnosis right mastitis (1) Sepsis ICD Code: A41.9 - Sepsis, unspecified organism Diagnosis: Principal (2) Mastitis ICD Code: N61.0 - Mastitis without abscess Diagnosis: Principal Status: Acute (3) Dehydration ICD Code: E86.0 - Dehydration Diagnosis: Principal (4) HTN (hypertension) ICD Code: I10 - Essential (primary) hypertension Diagnosis: Secondary (5) Tobacco abuse ICD Code: Z72.0 - Tobacco use Diagnosis: Secondary Procedures none Brief History - From Admission This is a 7-year-old female with a PMH of Breast CA s/p Bilateral Mastectomy and HTN who presented to the ER w/ complaints of right breast swelling, redness and tenderness starting today. Also notes subjective fever/chills. States similar symptoms back in February 2016 at which time she was admitted for Sepsis. On arrival, BP 135/77, HR 111, O2 sat 99% on RA, Temp 100.9. WBC 18.1. Chemistry unremarkable except for GFR 70. INR 0.9. Breast US with suspected inflammatory changes and edema on the right side, no abscess. CXR with no acute findings. CBC/BMP: 04/25/17 0456 04/25/17 0456 Significant Findings Laboratory Tests Test 04/23/17 15:45 04/24/17 03:55 04/24/17 04:44 04/25/17 04:56 White Blood Count 14.3 TH/MM3 (4.0-11.0) Red Blood Count 3.33 MIL/MM3 (4.00-5.30) 3.39 MIL/MM3 (4.00-5.30) 2.98 MIL/MM3 (4.00-5.30) Hemoglobin 10.5 GM/DL (11.6-15.3) 10.7 GM/DL (11.6-15.3) 9.5 GM/DL (11.6-15.3) Hematocrit 30.8 % (35.0-46.0) 31.6 % (35.0-46.0) 27.6 % (35.0-46.0) Mean Platelet Volume 6.5 FL (7.0-11.0) 6.6 FL (7.0-11.0) 6.9 FL (7.0-11.0) Neutrophils (%) (Auto) 78.8 % (16.0-70.0) 71.0 % (16.0-70.0) Neutrophils # (Auto) 11.3 TH/MM3 (1.8-7.7) Random Glucose 113 MG/DL (74-106) Total Protein 5.7 GM/DL (6.4-8.2) 5.9 GM/DL (6.4-8.2) 5.4 GM/DL (6.4-8.2) Albumin 2.6 GM/DL (3.4-5.0) 2.5 GM/DL (3.4-5.0) 2.4 GM/DL (3.4-5.0) Calcium Level 8.3 MG/DL (8.5-10.1) 8.2 MG/DL (8.5-10.1) 7.9 MG/DL (8.5-10.1) Aspartate Amino Transf (AST/SGOT) 10 U/L (15-37) 12 U/L (15-37) Potassium Level 3.3 MEQ/L (3.5-5.1) 3.2 MEQ/L (3.5-5.1) Blood Urea Nitrogen 5 MG/DL (7-18) 3 MG/DL (7-18) Phosphorus Level 2.3 MG/DL (2.5-4.9) Chloride Level 111 MEQ/L (98-107) Test 04/25/17 21:00 04/26/17 01:40 Iron Level 22 MCG/DL (50-170) Total Iron Binding Capacity 216 MCG/DL (250-450) Percent Iron Saturation 10.2 % (20-50) Folate 17.6 NG/ML (3.1-17.5) Vancomycin Level Trough 12.6 MCG/ML (5.0-10.0) Imaging Last Impressions Breast Ultrasound 04/24/17 0000 Signed Impressions: Service Date/Time: Monday, April 24, 2017 11:28 - CONCLUSION: Palpable lump corresponds with a fold in the implant. Minimal fluid adjacent to the implant but no definite abscess. Breast implant leak cannot be excluded. Rebel Argueta MD Chest X-Ray 04/21/171950 Signed Impressions: Service Date/Time: Friday, April 21, 2017 20:06 - CONCLUSION: No acute disease. Neeraj Goldberg MD PE at Discharge AAOx3, mild distress due to pain Lungs clear BL Left breast still presents mild erythema, induration has improved, mild tenderness to palpation. No draiange. abdomen soft, NT, ND no edema in lower extremities Pt update on day of discharge Patient states that she chlorine cell tender on the right breast, however erythema is subsiding and there is no further discharge. Patient denies fevers or chills, chest pain or shortness of breath. Hospital Course The patient was admitted to the medical floor, monitor on telemetry. Started on broad-spectrum antibiotics with IV vancomycin and IV cefepime. Cefepime was discontinued on 04/23 and IV Zosyn started. Initially morphine have been prescribed for pain control, however the patient stated she did not want to get morphine and this was discontinued. Pain control was provided with [place] tablets which seemed to control the pain. During the hospital stay there was new onset of clear drainage coming from the right breast for which the patient had an ultrasound which only showed inflammatory changes and minimal fluid adjacent to the breast implant. Plastic surgery was consulted for possible abscess and need of removal of the implant, however Dr. Brooks tamayo determined that the antibiotics were treated infection and there would not be in need to remove the prosthesis at this moment. The patient was cleared to be discharged by plastic surgery. Medical oncology was also consulted as per the family's request as the patient had history of breast cancer. Sepsis resolved, would resolving leukocytosis and resolution of fevers. The patient was advised smoking cessation. Patient was placed on a PPI for GI prophylaxis and Lovenox subcutaneously for DVT prophylaxis. Blood cultures were negative to date and wound culture obtained from drainage grew MSSA. Will discharge patient home on 10 days of Bactrim DS. Pt Condition on Discharge: Stable Discharge Disposition: Discharge Home Discharge Time: > 30 minutes Discharge Instructions DIET: Follow Instructions for: As Tolerated, No Restrictions Activities you can perform: Regular-No Restrictions Activities to Avoid: Strenuous Activity, Friction-Radiation Site Follow up Referrals: PCP Follow-up - 1 Week Plastic Surgery - [address] Bryan New Medications: Oxycodone-Acetaminophen (Percocet) 5-325 mg Tab 1-2 TAB PO Q6H PRN for PAIN, #30 TAB 0 Refills Sulfamethoxazole-Trimethoprim (Bactrim DS) 800-160 Mg Tab 1 TAB PO BID for Infection, #20 TAB 0 Refills James Curran MD Apr 26, 2017 12:15
--- NOTE | 2017-04-26 13:22 | PD.PLAS.PN ---
Subjective Remarks Patient doing well, no new leak or increase in right breast size Redness much less than before No fever She has MSSA sensitive to all antibiotics - she will see Dr. Bryan this Monday - already has an appointment She may also be able to see him today in his office if she is discharged early enough. I will sign off here Copy of cultures given to patient to take to Dr. Ojeda. Vital Signs Date Time Temp Pulse Resp B/P (MAP) Pulse Ox O2 Delivery O2 Flow Rate FiO2 04/26/17 12:13 98.5 71 18 142/74 (96) 95 04/26/17 09:13 98.1 65 18 150/69 (96) 95 04/26/17 04:33 98.5 69 16 115/58 (77) 94 04/26/17 04:15 62 04/26/17 00:11 98.7 74 16 138/69 (92) 96 04/26/17 00:03 65 04/25/17 20:50 99.2 69 18 128/68 (88) 96 04/25/17 20:29 66 04/25/17 16:36 98.5 70 18 112/82 (92) 91 I/O 04/25/17 04/25/17 04/25/17 04/26/17 04/26/17 04/26/17 07:00 15:00 23:00 07:00 15:00 23:00 Intake Total 2260 ml 1070 ml 960 ml 1960 ml Balance 2260 ml 1070 ml 960 ml 1960 ml Intake Oral 650 ml 720 ml 960 ml 360 ml IV Total 1610 ml 350 ml 1600 ml # Voids 6 1 3 4 Laboratory Tests Test 04/25/17 21:00 04/26/17 01:40 Reticulocyte Count 1.0 Absolute Reticulocyte Count 31.2 Iron Level 22 Total Iron Binding Capacity 216 Percent Iron Saturation 10.2 Ferritin 246 Vitamin B12 Level 656 Folate 17.6 Thyroid Stimulating Hormone 3rd Gen 1.150 Vancomycin Level Trough 12.6 Date/Time Source Procedure Growth Status 04/21/17 20:05 Blood Peripheral Aerobic Blood Culture - Final NO GROWTH IN 5 DAYS Complete 04/21/17 20:05 Blood Peripheral Anaerobic Blood Culture - Final NO GROWTH IN 5 DAYS Complete 04/24/17 06:28 Wound Skin Gram Stain - Final Complete 04/24/17 06:28 Wound Culture - Final Staphylococcus Aureus Complete Result Diagram: 04/25/17 0456 04/25/17 0456 Andrey Guy MD Apr 26, 2017 13:22
== END 2017-04-26 14:50 | disposition home or self-care (01) | DRG 872 ==
LOC: NEPE 19:13 → NEDA 23:17 → HCIS 04-22 01:20
PROVIDERS: ADMIT Hospitalist; ATTEND Hospitalist
DX: A41.9 Sepsis, unspecified organism (principal); N61.0 Mastitis without abscess; I10 Essential (primary) hypertension; F17.210 Nicotine dependence, cigarettes, uncomplicated; E86.0 Dehydration; D64.9 Anemia, unspecified; Z85.3 Personal history of malignant neoplasm of breast; Z90.13 Acquired absence of bilateral breasts and nipples; Z80.3 Family history of malignant neoplasm of breast; Z98.82 Breast implant status
CPT/HCPCS: 71010; 76642; 76937; 80053; 80202; 81001; 82607; 82728; 82746; 83540; 83550; 83605; 83735; 84100; 84443; 85025; 85044; 85610; 85730; 86403; 87040; 87070; 87147; 87185; 87186; 87205; 96365; 96366; 96367; J0692; J2543; J3370; J7030; J7050

== ENCOUNTER → 2017-06-19 | Day surgery (SDC) | payer BC ==
[~2017-06-19] MED LIST changes: +BUPIVACAINE/EPINEPHRINE 0.5% PF 10 ML VIAL ONE; +KETOROLAC TROMETHAMINE 30 MG/ML (IVP) VIAL IV PUSH ONE; +MIDAZOLAM HCL 2 MG/2 ML VIAL ONE; +ONDANSETRON HCL 4 MG/2 ML VIAL IV PUSH ONE; +PERC5TAB12 PO; +PROPOFOL 200 MG/20 ML AMP IV ONE; -Z.0.NO CURRENT MEDS; +ceFAZolin 2 GM PREMIX 50 ML ONE
--- NOTE | 2017-06-19 12:25 | TN ---
cc: JACOBY GOMEZ M.D. DATE OF SURGERY 06/19/2017 PREOPERATIVE DIAGNOSES 1. 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 2. Status post bilateral mastectomy for DCIS with implant based reconstruction. POSTOPERATIVE DIAGNOSES 1. 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 2. Status post bilateral mastectomy for DCIS with implant-based reconstruction. PROCEDURE PERFORMED Excision failed bilateral breast reconstruction with capsulectomies. SURGEON Jacoby Gomez MD TIME SIGNAL WIRER JANET Ball ANESTHESIA General LMA. COMPLICATIONS None. INDICATIONS FOR PROCEDURE Ms. Sauceda is a very pleasant 61-year-old female who several years ago underwent bilateral mastectomies for a left DCIS. She had immediate implant-based reconstruction. Since then she has had multiple complications including flap problems, chronic infection, seroma, sepsis and multiple hospitalizations and trips to the operating room for revisions and various other procedures. The patient overall became frustrated and decided she no longer wanted to deal with her reconstruction. She had had her implants removed secondary to infection but still had large bilateral chronic seromas. She had an actively draining seroma on the right chest wall. She was seen in the office last week and requested the entire area be excised due to ongoing infection with pain and problems. The risks and benefits of wide local excision of both breast reconstruction areas was discussed with her and she was agreeable. DETAILS The patient was identified, brought to the operating room and placed supine on the operating room table. After adequate general anesthesia was achieved with LMA, the anterior chest and axilla were prepped and draped in standard surgical fashion. 0.25% Marcaine was injected into the skin and subcutaneous tissue on the chest wall. Using large elliptical incisions, all the redundant skin from the previous reconstruction was excised. Subcutaneous skin flaps were then raised in all directions. The large capsule was then identified. The entire capsule along with the previously placed biologic mesh was excised and from the pectoralis major muscle. The skin, fat and the capsule were then sent to pathology for analysis. The wound was copiously irrigated with normal saline solution. All bleeding points were controlled with electrocautery Bovie. A 7-Spanish Mathew-Lemus drain was then inserted through a separate stab wound incision on the lower anterior chest wall after anesthetizing the skin and subcutaneous tissue with 0.25% Marcaine. The drain was secured with 3-0 nylon. The wound was then closed in multiple layers using a 2-0 Vicryl first, then a 3-0 Vicryl and finally a 4-0 Vicryl subcuticular. Sterile dressings were applied. On the right side a similar dissection technique was used. The patient had a very large seroma on the right side. The entire seroma cavity and capsule were then excised. This also included the biologic mesh which was sewn to the lateral border of the pectoralis major muscle. The entire specimen was removed and sent to pathology for analysis. The wound was copiously irrigated with normal saline solution. A 7-Spanish Mathew-Lemus drain was then inserted through an incision in the right lower anterior chest after anesthetizing the skin and subcutaneous tissue with 0.24% Marcaine. The drain was secured with 3-0 nylon. The surgical wound was then closed in multiple layers using 2-0 Vicryl for the deep tissue, 3-0 Vicryl for the superficial tissue and a 4-0 Vicryl for the skin in subcuticular fashion. Sterile dressings were applied. The patient was awakened and brought to Recovery in stable condition. MD JARRETT Diana/GERTRUDE /11:56 AM /12:02 PM
== END | disposition home or self-care (01) ==
LOC: ESDC 08:54
PROVIDERS: ATTEND Surgery Trauma Surgery
DX: T85.49XD Other mechanical complication of breast prosthesis and implant, subsequent encounter (principal); T85.79XD Infection and inflammatory reaction due to other internal prosthetic devices, implants and grafts, subsequent encounter; Z90.13 Acquired absence of bilateral breasts and nipples; Z85.3 Personal history of malignant neoplasm of breast; L76.34 Postprocedural seroma of skin and subcutaneous tissue following other procedure
CPT/HCPCS: 00402; 10140; 13160; 15839; 19371; 88305; J0690; J1885; J2250; J2405; J3010; 88307

== ENCOUNTER 2017-07-01 17:28 | Emergency (ER) | payer BC ==
[~2017-07-01 17:28] MED LIST changes: -BUPIVACAINE/EPINEPHRINE 0.5% PF 10 ML VIAL ONE; -KETOROLAC TROMETHAMINE 30 MG/ML (IVP) VIAL IV PUSH ONE; -MIDAZOLAM HCL 2 MG/2 ML VIAL ONE; -ONDANSETRON HCL 4 MG/2 ML VIAL IV PUSH ONE; -PROPOFOL 200 MG/20 ML AMP IV ONE; -ceFAZolin 2 GM PREMIX 50 ML ONE
[2017-07-01 17:30] VITALS: BP 137/65; PULSE 105; RESP 16; TEMP 98.2; O2SAT 95
[2017-07-01 18:55] VITALS: O2SAT 99
[2017-07-01 19:03] VITALS: BP 148/71; PULSE 81; RESP 15; O2SAT 99
[2017-07-01] MEDS ORDERED: CIPR250T52 PO (19:11)
[2017-07-01] MEDS ORDERED: NORC5TAB PO (19:11)
[2017-07-01 19:20] LABS: AUTOMATED NEUTROPHIL # 9.2 TH/MM3 (1.8-7.7); BASOPHIL % 0.3 % (0.0-2.0); EOSINOPHIL # 0.8 TH/MM3 (0-0.4); EOSINOPHIL % 5.9 % (0.0-4.0); HEMATOCRIT 34.3 % (35.0-46.0); HEMOGLOBIN 11.8 GM/DL (11.6-15.3); LYMPH % 20.3 % (9.0-44.0); LYMPHOCYTE # 2.7 TH/MM3 (1.0-4.8); MEAN CELL VOLUME 93.1 FL (80.0-100.0); MEAN CORPUSCULAR HEMOGLOBIN 31.9 PG (27.0-34.0); MEAN CORPUSCULAR HGB CONC 34.3 % (32.0-36.0); MEAN PLATELET VOLUME 6.5 FL (7.0-11.0); MONO % 5.1 % (0.0-8.0); MONOCYTE # 0.7 TH/MM3 (0-0.9); NEUT % 68.4 % (16.0-70.0); PLATELET COUNT 332 TH/MM3 (150-450); RED BLOOD COUNT 3.69 MIL/MM3 (4.00-5.30); RED CELL DISTRIBUTION WIDTH 13.4 % (11.6-17.2); WHITE BLOOD COUNT 13.5 TH/MM3 (4.0-11.0)
[2017-07-01 19:30] LABS: PROTHROMBIN TIME - PATIENT 9.7 SEC (9.8-11.6)
[2017-07-01 19:45] LABS: ALBUMIN 3.2 GM/DL (3.4-5.0); AST (GOT) 20 U/L (15-37); BICARBONATE 26.2 MEQ/L (21.0-32.0); BLOOD UREA NITROGEN 10 MG/DL (7-18); CALCIUM 8.8 MG/DL (8.5-10.1); CHLORIDE 105 MEQ/L (98-107); CREATININE 0.82 MG/DL (0.50-1.00); GLOMERULAR FILTRATION RATE 71 ML/MIN (>89); GLUCOSE,RANDOM 88 MG/DL (74-106); SODIUM (NA) 137 MEQ/L (136-145)
[2017-07-01 19:47] LABS: ALT (GPT) 19 U/L (10-53)
[2017-07-01 19:49] LABS: ALKALINE PHOSPHATASE 85 U/L (45-117); TOTAL BILIRUBIN ADULT 0.2 MG/DL (0.2-1.0); TOTAL PROTEIN 7.4 GM/DL (6.4-8.2)
--- NOTE | 2017-07-01 20:17 | PD ---
HPI Chief Complaint: Skin Problem Time Seen by Provider: 18:48 Travel History International Travel<30 days: No Contact w/Intl Traveler<30days: No Traveled to known affect area: No History of Present Illness HPI 61-year-old female presents emergency department for evaluation of infection. Patient had bilateral mastectomy in 2014. She states that she has had chronic pain in her breast region subsequently. Patient states that the last year the right lateral remaining breast tissue has gotten incessantly infected. She has been seen and evaluated by Dr. Mejia multiple times. She had a procedure on or Dr. Mejia performed an I and D and placed a IMANI drain in the right axilla. Patient states he started her on Bactrim DS and Cipro postprocedure however the area is becoming more erythematous and painful with purulent drainage. Patient states she had a fever last night 102. She took ibuprofen at home and the fever broke. Patient is afebrile at our facility. Patient's major medical history is bilateral mastectomy secondary to breast cancer and total hysterectomy secondary to ovarian and uterine cancer. Patient is denying any other physiological complaints at this time. PFSH Past Medical History Hx Anticoagulant Therapy: No Cancer: Yes (breast) Cardiovascular Problems: No Chemotherapy: No Cerebrovascular Accident: No Diabetes: No Diminished Hearing: No Endocrine: No Genitourinary: No Immune Disorder: No Musculoskeletal: No Neurologic: No Psychiatric: No Reproductive: No Respiratory: No Radiation Therapy: No Menopausal: Yes Past Surgical History Abdominal Surgery: Yes (hysterectomy) AICD: No Arteriovenous Shunt: No Cardiac Surgery: No Ear Surgery: No Endocrine Surgery: No Eye Surgery: No Genitourinary Surgery: No Gynecologic Surgery: Yes (hysterectomy) Hysterectomy: Yes Insulin Pump: No Joint Replacement: No Oral Surgery: Yes (full upper denture) Pacemaker: No Thoracic Surgery: Yes (bilateral mastectomy) Other Surgery: Yes (hysterectomy, double mastectomy, lysis of abdominal adhesions) Social History Alcohol Use: Yes (1-2 WEEK) Tobacco Use: Yes (1 PK DAY) Substance Use: No Allergies-Medications (Allergen,Severity, Reaction): Coded Allergies: succinylcholine (Verified Allergy, Severe, MALIGANT HYPERTHERMIA, 07/01/17 ) Reported Meds & Prescriptions Reported Meds & Active Scripts Active Bactrim DS (Sulfamethoxazole-Trimethoprim) 800-160 Mg Tab 1 Tab PO BID Reported Cipro (Ciprofloxacin HCl) 250 Mg Tab 250 Mg PO BID [place] (Hydrocodone-Acetaminophen) 5 Mg-325 Mg Tab 1-2 Tab PO Q4H PRN Review of Systems Except as stated in HPI: all other systems reviewed are Neg Physical Exam Narrative GENERAL: Well-nourished, well-developed white 61-year-old female patient resting comfortably in bed in no acute respiratory distress. SKIN: Right lateral thoracic region erythematous with purulent drainage from incision noted to be over the previous mastectomy. IMANI drain in place and draining serous dressing on his fluid in right axilla HEAD: Atraumatic. Normocephalic. EYES: Pupils equal and round. No scleral icterus. No injection or drainage. ENT: No nasal bleeding or discharge. Mucous membranes pink and moist. NECK: Trachea midline. No JVD. CARDIOVASCULAR: Regular rate and rhythm. No murmur appreciated. RESPIRATORY: No accessory muscle use. Clear to auscultation. Breath sounds equal bilaterally. GASTROINTESTINAL: Abdomen soft, non-tender, nondistended. Hepatic and splenic margins not palpable. MUSCULOSKELETAL: No obvious deformities. No clubbing. No cyanosis. No edema. NEUROLOGICAL: Awake and alert. No obvious cranial nerve deficits. Motor grossly within normal limits. Normal speech. PSYCHIATRIC: Appropriate mood and affect; insight and judgment normal. Data Data Last Documented VS Vital Signs Date Time Temp Pulse Resp B/P (MAP) Pulse Ox O2 Delivery O2 Flow Rate FiO2 07/02/17 00:33 07/01/17 19:04 81 15 07/01/17 19:03 99 07/01/17 18:55 Room Air 07/01/17 17:30 98.2 Orders Orders Sepsis Workup Initiated (07/01/17 ) Complete Blood Count With Diff (07/01/17 17:46) Comprehensive Metabolic Panel (07/01/17 17:46) Lactic Acid Sepsis Protocol (07/01/17 17:46) Blood Culture (07/01/17 17:46) Iv Access Insert/Monitor (07/01/17 17:46) Oximetry (07/01/17 17:46) Act Partial Throm Time (Ptt) (07/01/17 17:46) Prothrombin Time / Inr (Pt) (07/01/17 17:46) Asp: Location Of [facility] Admin (Asp Crit: (07/01/17 23:00) [facility] Inj (Dalvance Inj) (07/01/17 22:45) Labs Laboratory Tests Test 07/01/17 18:50 White Blood Count 13.5 TH/MM3 Red Blood Count 3.69 MIL/MM3 Hemoglobin 11.8 GM/DL Hematocrit 34.3 % Mean Corpuscular Volume 93.1 FL Mean Corpuscular Hemoglobin 31.9 PG Mean Corpuscular Hemoglobin Concent 34.3 % Red Cell Distribution Width 13.4 % Platelet Count 332 TH/MM3 Mean Platelet Volume 6.5 FL Neutrophils (%) (Auto) 68.4 % Lymphocytes (%) (Auto) 20.3 % Monocytes (%) (Auto) 5.1 % Eosinophils (%) (Auto) 5.9 % Basophils (%) (Auto) 0.3 % Neutrophils # (Auto) 9.2 TH/MM3 Lymphocytes # (Auto) 2.7 TH/MM3 Monocytes # (Auto) 0.7 TH/MM3 Eosinophils # (Auto) 0.8 TH/MM3 Basophils # (Auto) 0.0 TH/MM3 CBC Comment DIFF FINAL Differential Comment Prothrombin Time 9.7 SEC Prothromb Time International Ratio 1.0 RATIO Activated Partial Thromboplast Time 23.3 SEC Blood Urea Nitrogen 10 MG/DL Creatinine 0.82 MG/DL Random Glucose 88 MG/DL Total Protein 7.4 GM/DL Albumin 3.2 GM/DL Calcium Level 8.8 MG/DL Alkaline Phosphatase 85 U/L Aspartate Amino Transf (AST/SGOT) 20 U/L Alanine Aminotransferase (ALT/SGPT) 19 U/L Total Bilirubin 0.2 MG/DL Sodium Level 137 MEQ/L Potassium Level 3.3 MEQ/L Chloride Level 105 MEQ/L Carbon Dioxide Level 26.2 MEQ/L Anion Gap 6 MEQ/L Estimat Glomerular Filtration Rate 71 ML/MIN Lactic Acid Level 1.1 mmol/L [facility] Medical Decision Making Medical Screen Exam Complete: Yes Emergency Medical Condition: Yes Differential Diagnosis Differential diagnoses include but are not limited to cellulitis, sepsis, abscess Narrative Course IV obtained and blood were sent to lab. CBC, CMP, lactic acid, blood cultures ordered and pending. CBC results mild leukocytosis at 13.5 CMP shows mild hypokalemia at 3.3 and hypoalbuminemia at 3.2 Lactic acid within normal limits at 1.1 PT/INR shows no acute abnormalities. Patient was started on Bactrim and Cipro by Dr. Mejia on after the I&D procedure. Patient has failed this outpatient antibiotic therapy. Based on patient's labs, clinical presentation and physical exam patient is a candidate for Dalvance infusion. Dalvance ordered and patient states she will follow up with Dr. mejia next week after the holiday. Patient verbalizes presents to return to the emergency department and states she will if needed. Patient will be discharged after Dalvance administration. Diagnosis Primary Impression: Cellulitis Qualified Codes: L03.319 - Cellulitis of trunk, unspecified Referrals: Primary Care Physician Patient Instructions: Cellulitis (DC), General Instructions Additional Instructions: Please return to emergency department if your symptoms return or worsen. Follow up with Dr. mejia next week as discussed. Supportive care, stay hydrated, get a past and a diet as tolerated. Take any ibuprofen and/or Tylenol as needed for pain and fever. Disposition: 01 DISCHARGE HOME Condition: Stable MagalysKaryna teresa Yina GONZALES Jul 01, 2017 20:17
[2017-07-01] MEDS ORDERED: DALBAVANCIN 1,500 MG/D5W 500 ML IV ONE ×2 (22:45)
[2017-07-01] MEDS ORDERED: ASP: Location of Dalbavancin administration OTHER ONE (23:00)
== END 2017-07-02 00:34 | disposition home or self-care (01) ==
LOC: NEPC 17:28
DX: N61.0 Mastitis without abscess (principal); D72.829 Elevated white blood cell count, unspecified; E87.6 Hypokalemia; E88.09 Other disorders of plasma-protein metabolism, not elsewhere classified; F17.200 Nicotine dependence, unspecified, uncomplicated
CPT/HCPCS: 80053; 83605; 85025; 85610; 85730; 87040; 96365; 99284; J0875; J7060